=== PATIENT | female | born 1970 | race Caucasian/White ===

== ENCOUNTER 2017-01-23 21:49 | Emergency (ER) | payer OTHER ==
[~2017-01-23] VITALS: Ht 162.6 cm; Wt 99.8 kg
[~2017-01-23 21:49] MED LIST: ALBU8.5H3 IH; CARB1TAB5 PO; HYDR-2678 PO; HYDR25TA9 PO; METH10TA2 PO; PREG150C PO; ROPI0.5T2 PO; ROTI1PAT4 TD
[2017-01-23 22:00] VITALS: BP 160/91
--- NOTE | 2017-01-23 23:21 | PHYS DOC ---
General Chief Complaint: SKIN PROBLEM Stated Complaint: SKIN PROBLEM Time Seen by MD: 22:51 Source: patient, family Problems: History of Present Illness Initial Comments Patient with daughter for rash. Patient states that about 4:00 she noted some "welts" on her skin. This most prominent over the left posterior torso, and also noted over the right elbow and distal upper arm and behind the right knee. Patient says these are burning and itching, and she has burning throughout her entire body as well. She says she's never had this happen to her before. There is no fever or chills today. There is no runny nose or sore throat. She has no trouble swallowing or talking. There's no chest pain or shortness of breath. There is no nausea or vomiting or abdominal pain. She has no change in bowel or bladder habits and no other acute focal extremity or neurologic complaints noted except for the rash. Patient really has no new contacts. She's been on chronic medications for Parkinson's and chronic pain as well as fiber myalgia for quite some time. There's no recent change in her medications. She was placed on prednisone for a rash over the right wrist about 2 weeks ago. This discontinued last week she's had no further medications. There is no new food, no new clothing, no new soap, no new bath or body products, noted loggia detergent, no new cosmetics, and no other new contacts. She's not been outside working in the yard. She did get baptized today but this was a full inversion and the rash is located only in discrete areas as previously described. Patient' s really done nothing at home for this and notes no factors that increase or decrease her symptoms. Patient's past medical history is remarkable for Parkinson's disease and fibromyalgia. She is on chronic narcotic therapy including methadone for chronic pain. She is a nonsmoker and nonuser of ethanol. Allergies: Coded Allergies: codeine (Verified Allergy, Intermediate, Rash, 02/26/14) Past Medical History Medical History: other Surgical History: other Social History Smoker: non-smoker Alcohol: none Review of Systems All Other Systems: Reviewed and Negative Physical Exam General Appearance: WD/WN, no apparent distress Ear, Nose, Throat: normal ENT inspection, normal pharynx Neck: full range of motion, supple, normal inspection Respiratory: lungs clear, normal breath sounds, no respiratory distress Cardiovascular: regular rate, rhythm, no edema Gastrointestinal: non tender, soft, no organomegaly Back: no CVA tenderness, no vertebral tenderness Extremities: non-tender, no pedal edema Neurologic/Psychiatric: alert, normal mood/affect, oriented x 3 Skin: rash Lymphatic: no adenopathy Comments Generally this a well-developed well-nourished white female in no acute distress. Vitals are as noted. Pertinent findings on physical exam shows ears and throat to be clear. The lips and tongue are not swollen. There is no dysphagia and dysphonia or problems with secretions noted. Neck is supple without adenopathy or JVD. Chest is clear to auscultation bilaterally. There is no wheezes, tachypnea, use of accessory muscles, problems with verbalization, and no signs of acute respiratory distress. Cardiac vascular exam shows regular rate and rhythm without murmur. The abdomen is soft and nontender. Back shows no CVA tenderness. Extremity show no cyanosis or edema. The skin does show isolated earlier urticarial lesions over the medial aspect of the right elbow and right upper arm, in the popliteal fossa on the right, and behind the left lateral thoracic wall. There is no vesicles. There is no signs of cellulitis. There is no central clearing. These do appear to be consistent with urticarial lesions from some sort of reaction. There is no signs of discrete insect bite or trauma. Neurologic exam shows the patient awake, alert, oriented, and cooperative. Remainder of physical exam is clinically unremarkable. Orders, Labs, Meds Old charts note prior ER visits. Face contusion, pharyngitis, and COPD. She was last admitted to the hospital in 2013 for syncope. I discussed with the patient and her daughter the uncertain cause of her rash. This does appear to be an urticarial reaction to something, but the source remains unknown. There is really no specific known contacts which could cause urticaria in this particular distribution, and she has no new food medication or other intakes which would cause this reaction as well. I did suggest that while the source of this is unknown, we conservatively treat her symptoms. I did offer her IV therapy for quicker relief of symptoms, but she declines because she says she is a hard stick. We'll go and give her an initial doses of Benadryl, Pepcid, and prednisone here in the ED, along with prescriptions for home for the same. She does voice understanding need to follow up with primary care or return to the ER sooner as needed if worsening anyway. She looks well, in no acute discomfort distress, okay for discharge home at this time. AIDE DAMON MD Jan 23, 2017 23:20
[2017-01-23] MEDS ORDERED: DIPHENHYDRAMINE HCL 25 MG CAPSULE PO ONE (23:45)
[2017-01-23] MEDS ORDERED: PREDNISONE 20 MG TABLET PO ONE (23:45)
[2017-01-23] MEDS ORDERED: FAMOTIDINE 20 MG TABLET PO ONE (23:45)
== END 2017-01-23 23:37 | disposition home or self-care (01) ==
LOC: ER 21:49
DX: L50.9 Urticaria, unspecified (principal); G89.29 Other chronic pain; G20 Parkinson's disease; M79.7 Fibromyalgia; Z79.891 Long term (current) use of opiate analgesic; Z88.6 Allergy status to analgesic agent
CPT/HCPCS: 99284; J7512; Q0163

== ENCOUNTER 2017-03-14 20:25 | Emergency (ER) | payer OTHER ==
[~2017-03-14] VITALS: Ht 162.6 cm; Wt 99.8 kg
[~2017-03-14 20:25] MED LIST changes: -ALBU8.5H3 IH; +ALBU8.5H8 IH
[2017-03-14 20:50] VITALS: BP 122/83
[2017-03-14] MEDS ORDERED: PRED50TA PO (21:15)
--- NOTE | 2017-03-14 21:15 | PHYS DOC ---
Past History Past Medical History: Fibromyalgia, Other Past Surgical History: Cholecystectomy, Other Smoking: Greater than 1 pack/day Alcohol Use: None Drug Use: None Adult General Chief Complaint Chief Complaint: SKIN PROBLEM HPI HPI Patient is a 47 year old F who presents with hives for the past day. She states she gets these off and on with no definite cause. Patient denies any shortness of breath. Patient denies any nausea or vomiting. Patient has no other complaints. Pertinent exam findings: Urticarial hives generalized ED course: Patient was seen and examined and 10 mg IM Decadron were ordered and patient was discharged with a prescription for prednisone and told to take over-the- counter Benadryl MDM: After reviewing the chart, CC/HPI/PMH, physical exam, I do not believe the patient has a life threatening rash warranting further workup and/or admission at this time. I believe the patient's rash is consistent with urticaria the patient states that in the past steroids haven't worked very well. Patient was given 10 mg of Decadron and prescription for prednisone. Recommended the patient follow-up with PCP and maybe be referred on to an sql manager for further allergy testing. Patient is stable for discharge. Additional verbal discharge instructions were provided to the patient and that if symptoms get worse or any new symptoms arise that are worrisome to the patient she is to return to the emergency room immediately Review of Systems Review of Systems GEN: Denies fevers, chills, sweats HEENT: Denies blurred vision, sore throat CV: Denies chest pain RESP: Denies shortness of air, cough GI: Denies n/v/d NEURO: Denies confusion, dizziness MSK: Denies weakness, joint pain/swelling Skin: Rash Allergies Allergies Allergies Coded Allergies Type Severity Reaction Last Updated Verified codeine Allergy Intermediate Rash 02/26/14 Yes Physical Exam Physical Exam GEN.: No apparent distress. Alert and oriented. HEENT: Head is normocephalic, atraumatic NECK: Supple. LUNGS: CTAB. HEART: RRR, S1, S2 present. Peripheral pulses intact ABDOMEN: Soft, nontender. Positive bowel sounds. EXTREMITIES: Without any cyanosis. NEUROLOGIC: Normal speech, normal tone PSYCHIATRIC: Normal affect, normal mood. SKIN: Urticarial rash to the trunk and upper extremities EKG EKG [] Radiology/Procedures Radiology/Procedures [] Course & Med Decision Making Course & Med Decision Making Pertinent Labs and Imaging studies reviewed. (See chart for details) [] Dragon Disclaimer Dragon Disclaimer This chart was dictated in whole or in part using Voice Recognition software in a busy, high-work load, and often noisy Emergency Department environment. It may contain unintended and wholly unrecognized errors or omissions. Departure Departure: Impression: Primary Impression: Urticaria Condition: STABLE Referrals: CAROL ANN SANTOS APRN (PCP) Patient Instructions: Contact Dermatitis, [id number] Additional Instructions: Please follow up with her family doctor in one to 2 days and asked to be referred on to an sql manager for allergy testing Scripts Prednisone (PREDNISONE) 50 Mg Tablet 50 MG PO DAILY for 5 Days, #5 TAB Prov: MARYLOU TELLEZ DO 03/14/17 MARYLOU TELLEZ DO Mar 14, 2017 21:15
[2017-03-14] MEDS ORDERED: DEXAMETHASONE SOD PHOS 10 MG/ML VIAL ONE (21:22)
[2017-03-14] MEDS ORDERED: FAMOTIDINE 20 MG TABLET ONE (21:22)
[2017-03-14] MEDS ORDERED: diphenhydrAMINE HCL 25 MG CAPSULE PO ONE ×2 (21:22→21:30)
[2017-03-14] MEDS ORDERED: FAMOTIDINE 20 MG TABLET PO ONE (21:30)
[2017-03-14] MEDS ORDERED: DEXAMETHASONE SOD PHOS 10 MG/ML VIAL IM ONE (21:30)
== END 2017-03-14 21:30 | disposition home or self-care (01) ==
LOC: ER 20:25
DX: L50.9 Urticaria, unspecified (principal); M79.7 Fibromyalgia; F17.210 Nicotine dependence, cigarettes, uncomplicated; Z88.6 Allergy status to analgesic agent
CPT/HCPCS: 96372; 99283; J1100; Q0163

== ENCOUNTER 2017-07-31 11:48 | Emergency (ER) | payer OTHER ==
[~2017-07-31] VITALS: Ht 162.6 cm; Wt 99.8 kg
[~2017-07-31 11:48] MED LIST changes: +PRED50TA PO
[2017-07-31] MEDS ORDERED: NAPROXEN 500 MG TABLET PO ONE (12:20)
--- NOTE | 2017-07-31 13:13 | RAD ---
Three-view right shoulder radiographs 07/31/2017 Clinical history: Fall 2 days ago with right shoulder pain. AP internal and external rotation and transscapular digital radiographs of the right shoulder were obtained. No fracture or dislocation of the right shoulder is seen. No significant degenerative changes are noted. Impression: No fracture or dislocation of the right shoulder is seen.
--- NOTE | 2017-07-31 20:42 | ED.ADGEN ---
Past History Past Medical History: Diabetes, Fibromyalgia, Other Past Surgical History: Cholecystectomy, Other Smoking: Greater than 1 pack/day Alcohol Use: None Drug Use: None Adult General HPI HPI Patient is a 47-year-old woman, states she has a history of type 2 diabetes mellitus, 5 myalgia, "brain seizures", who presents to the emergency department with a complaint of right shoulder pain. Patient states she fell in her kitchen several days ago, striking her shoulder on the floor. She states that she has had pain since that time, denies other injuries or complaints. States pain is located in the shoulder and radiates down to the elbow, is worse with internal rotation and elevation. States she has been using her home dose of hydrocodone, she takes for chronic back pain without relief. States that she will occasionally have some heaviness and numbness that extends into the arm which he was at "hanging down for a while". Denies any weakness, denies any neck pain , head pain, nausea, vomiting, chest pain or other complaints. Patient ambulating without difficulty. Review of Systems Review of Systems Constitutional: Denies fever or chills [] Eyes: Denies change in visual acuity, redness, or eye pain [] HENT: Denies nasal congestion or sore throat [] Respiratory: Denies cough or shortness of breath [] Cardiovascular: No additional information not addressed in HPI [] GI: Denies abdominal pain, nausea, vomiting, bloody stools or diarrhea [] : Denies dysuria or hematuria [] Musculoskeletal: Denies back pain, complaining of pain in the right shoulder. Integument: Denies rash or skin lesions [] Neurologic: Denies headache, focal weakness or sensory changes [] Endocrine: Denies polyuria or polydipsia [] Current Medications Current Medications Current Medications Medications (Trade) Dose Ordered Sig/[facility] Start Time Stop Time Status Last Admin Dose Admin Naproxen (Naprosyn) 500 mg 1X ONCE 07/31/17 12:20 07/31/17 12:21 DC 07/31/17 12:20 500 MG Allergies Allergies Allergies Coded Allergies Type Severity Reaction Last Updated Verified codeine Allergy Intermediate Rash 02/26/14 Yes Physical Exam Physical Exam Constitutional: Well developed, well nourished, no acute distress, non-toxic appearance. [] HENT: Normocephalic, atraumatic, bilateral external ears normal, oropharynx moist, no oral exudates, nose normal. [] Eyes: PERRLA, EOMI, conjunctiva normal, no discharge. [] Neck: Normal range of motion, no tenderness, no step-offs or deformities, supple , no stridor. [] Cardiovascular:Heart rate regular rhythm, no murmur , S1, S2, rubs or gallops.[] Lungs & Thorax: Bilateral breath sounds clear to auscultation, no wheezing, rhonchi, rales. No chest or crepitus or tenderness. [] Abdomen: Bowel sounds normal, soft, obese, no rebound, rigidity, no guarding, no tenderness, no masses, no pulsatile masses. [] Skin: Warm, dry, no erythema, no rash. [] Back: No midline or paraspinal tenderness, no step-offs or deformities, no CVA tenderness. [] Extremities: Patient with tenderness palpation in the glenoid fossa, patient worse with internal rotation and elevation, no bony point tenderness below this area, patient with full active and passive range of motion throughout the rest of her extremities pulses are 2+ and equal bilaterally, no external signs of trauma, no cyanosis, no clubbing, ROM intact, no edema. [] Neurologic: Alert and oriented X 3, normal motor function, normal sensory function, no focal deficits noted. [] Psychologic: Affect normal, judgement normal, mood normal. [] Current Patient Data Vital Signs Vital Signs Date Time Temp Pulse Resp B/P (MAP) Pulse Ox O2 Delivery O2 Flow Rate FiO2 07/31/17 12:00 98.2 74 18 99 Room Air EKG EKG Not indicated.[] Radiology/Procedures Radiology/Procedures [] Impressions: [address] [address] IMAGING REPORT Signed PATIENT: JACKIE CORONEL ACCOUNT: [id number] : 1970 LOCATION: ER AGE: 47 SEX: F EXAM STATUS: REG ER ORD. PHYSICIAN: FLACA EPSTEIN DO REASON: Fall/pain PROCEDURE: SHOULDER 2+V RIGHT Three-view right shoulder radiographs 07/31/2017 Clinical history: Fall 2 days ago with right shoulder pain. AP internal and external rotation and transscapular digital radiographs of the right shoulder were obtained. No fracture or dislocation of the right shoulder is seen. No significant degenerative changes are noted. Impression: No fracture or dislocation of the right shoulder is seen. DICTATED AND SIGNED BY: JONNIE ABDI MD DATE: 07/31/17 0561 CC: CAROL ANN SANTOS APRN; FLACA EPSTEIN DO ~ Course & Med Decision Making Course & Med Decision Making Pertinent Labs and Imaging studies reviewed. (See chart for details) Patient with negative Spurling sign, history and examination are concerning for possible rotator cuff injury, following fall. Patient neurovascularly intact, x- rays obtained after discussion at bedside which did not reveal any concerning findings. Patient was treated with naproxen in the ED, instructed to continue [id number] anti-inflammatory medications along with her home medications, was given contact information for orthopedics, and clear and detailed return instructions which she voiced understanding and agreement. Patient discharged home in stable condition with plan and precautions as above. Final Impression Final Impression [] Problems: Dragon Disclaimer Dragon Disclaimer This electronic medical record was generated, in whole or in part, using a voice recognition dictation system. Departure: Impression: Primary Impression: Right upper limb pain Disposition: HOME, SELF-CARE Condition: IMPROVED FLACA EPSTEIN DO Jul 31, 2017 20:42
[2017-08-03 13:30] VITALS: BP 122/63
== END 2017-07-31 13:58 | disposition home or self-care (01) ==
LOC: ER 11:48
DX: M25.511 Pain in right shoulder (principal); E11.9 Type 2 diabetes mellitus without complications; M79.7 Fibromyalgia; G89.29 Other chronic pain; Z88.5 Allergy status to narcotic agent; F17.200 Nicotine dependence, unspecified, uncomplicated; W19.XXXA Unspecified fall, initial encounter; Y93.89 Activity, other specified; Y99.8 Other external cause status; Y92.090 Kitchen in other non-institutional residence as the place of occurrence of the external cause
CPT/HCPCS: 73030; 96361; 96374; 99284; 99285-25

== ENCOUNTER 2017-08-21 16:05 | Observation (INO) | payer OTHER ==
[~2017-08-21] VITALS: Ht 162.6 cm; Wt 99.8 kg
[2017-08-21] MEDS ORDERED: ASPIRIN 81 MG TAB.CHEW PO ONE (16:30)
[2017-08-21] MEDS ORDERED: NITROGLYCERIN SUBLINGUAL 0.4 MG BOTTLE OF 25. SL PRN (16:30)
--- NOTE | 2017-08-21 16:34 | RAD ---
EXAM: Chest, single view. HISTORY: Cough. COMPARISON: 12/04/2014. FINDINGS: A frontal view of the chest is obtained. There is no infiltrate, effusion or pneumothorax. The heart is normal in size. IMPRESSION: No acute pulmonary finding.
[2017-08-21 16:48] LABS: BASO % 0 % (0-3); EOS # 0.2 x10^3/uL (0.0-0.7); EOS % 2 % (0-3); HEMATOCRIT 39.7 % (36.0-47.0); HEMOGLOBIN 13.4 g/dL (12.0-15.5); LYMPH # 3.7 x10^3/uL (1.0-4.8); LYMPH % 35 % (24-48); MEAN CORPUSCULAR HEMOGLOBIN 29 pg (25-35); MEAN CORPUSCULAR HGB CONC 34 g/dL (31-37); MEAN CORPUSCULAR VOLUME 86 fL (79-100); MONO # 0.7 x10^3/uL (0.0-1.1); MONO % 7 % (0-9); NEUT # 5.8 x10^3uL (1.8-7.7); NEUT % 55 % (31-73); PLATELET COUNT 314 x10^3/uL (140-400); RED BLOOD COUNT 4.61 x10^6/uL (3.50-5.40); WHITE BLOOD COUNT 10.5 x10^3/uL (4.0-11.0)
[2017-08-21 16:49] LABS: HEMOGLOBIN ISTAT 13.6 gm/dL; POTASSIUM ISTAT 3.7 mmol/L (3.5-5.0)
--- NOTE | 2017-08-21 16:53 | PHYS DOC ---
General Chief Complaint: CHEST PAIN Stated Complaint: CHEST/RT ARM TIGHT,LEFT FACIAL SWELLING Time Seen by MD: 16:14 Source: patient, old records Exam Limitations: no limitations Problems: History of Present Illness Initial Comments Patient is a 47-year-old female who comes to the ED complaining of headache and chest pain. Patient states that for the past several days she just hasn't been feeling very well. She states she's been lying around on the couch for most of her time. Today at 1 PM while reclining on the couch she experienced sudden onset severe anterior chest tightness with radiation to her right arm. She states she had diaphoresis and shortness of breath with some nausea no vomiting. Simultaneously she experienced a mild global throbbing headache and felt as if she was having right arm and leg weakness. Her spouse felt as if she had some left-sided facial swelling and compel her to come for evaluation. On ED arrival patient vital signs are stable she is ambulatory and bedside neurologic exam is normal at this time. She states that her chest pain symptoms have nearly resolved and on arrival actually considered signing out AGAINST MEDICAL ADVICE. She did decide to stay for evaluation after talking over the phone with her spouse and workup was initiated. Time of all symptom onset 1300 today. Timing/Duration: resolved prior to arrival, other (1300 today) Severity: moderate Modifying Factors: improves with other Associated Symptoms: chest pain, diaphoresis, headaches, malaise, nausea/ vomiting, shortness of breath, weakness Allergies: Coded Allergies: codeine (Verified Allergy, Intermediate, Rash, 08/21/17) Past Medical History Medical History: other (CVA, TIA, Parkinson's, fibromyalgia, COPD, diabetes, seizure, tobaccoism) Surgical History: other (hysterectomy, tonsillectomy, cholecystectomy) Social History Smoker: greater than 1 pack/day Alcohol: none Drugs: none Review of Systems Constitutional: denies chills, diaphoresis, denies fever, malaise Respiratory: cough, shortness of breath, denies wheezing Cardiovascular: chest pain, denies palpitations, denies syncope Gastrointestinal: denies abdominal pain, denies diarrhea, denies nausea, denies vomiting Genitourinary: denies dysuria, denies frequency, denies hematuria Musculoskeletal: denies back pain, denies joint swelling, denies neck pain Psychiatric/Neurological: see HPI Physical Exam General Appearance: WD/WN, no apparent distress Eyes: bilateral eye normal inspection, bilateral eye PERRL, bilateral eye EOMI Ear, Nose, Throat: hearing grossly normal, normal ENT inspection (mild left facial swelling no droop, tender left-sided nodule 1 cm smooth and round mildly tender consistent with reactive lymph node.), normal pharynx Neck: non-tender, full range of motion, supple Respiratory: chest non-tender, normal breath sounds, no respiratory distress Cardiovascular: normal peripheral pulses, regular rate, rhythm, no edema Gastrointestinal: normal bowel sounds, non tender, soft Back: no CVA tenderness, no vertebral tenderness Extremities: normal range of motion, non-tender (one plus pitting lower extremity edema) Neurologic/Psychiatric: utility inspector II-XII nml as tested, no motor/sensory deficits, alert, normal mood/affect, oriented x 3 Skin: normal color, warm/dry Orders, Labs, Meds EKG: Normal sinus rhythm 78 bpm, incomplete right bundle erica block, no STEMI. Interpreted by Dr. Silva. PATIENT: JACKIE CORONEL ACCOUNT: [id number] : 1970 LOCATION: ER AGE: 47 SEX: F EXAM STATUS: REG ER ORD. PHYSICIAN: JANE SILVA DO REASON: cp PROCEDURE: PORTABLE CHEST 1V EXAM: Chest, single view. HISTORY: Cough. COMPARISON: 12/04/2014. FINDINGS: A frontal view of the chest is obtained. There is no infiltrate, effusion or pneumothorax. The heart is normal in size. IMPRESSION: No acute pulmonary finding. DICTATED AND SIGNED BY: CAROL ANN ULLOA MD DATE: 08/21/17 163 CC: CAROL ANN SANTOS RELIEF PHARMACIST; JANE SILVA DO ~ I-STAT basic metabolic panel: Sodium 141, potassium 3.7, chloride 103, CO2 28, glucose 96, BUNs 8, creatinine 0.7, hemoglobin 13.6, hematocrit 40%, anion gap 15 I-STAT troponin 0.00 Labs and urine otherwise normal, d-dimer 1.32. CTA of the chest ordered. Will order Lovenox anticoagulation empirically until CTA returned as normal. 1758: I discussed the patient with gas station manager hospitalist Dr. Henry. He accepts the patient for inpatient ICU admission pending negative CT evaluation of the head and pending the patient remains neurologically intact as she currently is. 1845: I rechecked the patient, she is currently sitting up on the edge of her bed eating a salad using her right hand as she is right-hand dominant. She remains neurologically intact and asymptomatic. She has no new or progressive symptoms I advised her that CTA of the chest would be performed prior to her transfer to the main hospital for admission. Patient is agreeable. PATIENT: JACKIE CORONEL ACCOUNT: [id number] : 1970 LOCATION: ER AGE: 47 SEX: F EXAM STATUS: REG ER ORD. PHYSICIAN: JANE SILVA DO REASON: JACK, R arm/leg weak, h/o CVA PROCEDURE: CT HEAD WO CONTRAST CT HEAD WO CONTRAST dated 08/21/2017 6:05 PM Indication:patient came into ER tonight w pressure on top and temporal side of head, nausea and weakness. Hx of brain seizures and has had 2 TIA's in past Comparison: October 19, 2016 exam. Technique: One or more of the following individualized dose reduction techniques were utilized for this examination: 1. Automated exposure control 2. Adjustment of the mA and/or kV according to patient size 3. Use of iterative reconstruction technique Findings: The ventricles and sulci are normal in size. There is no evidence of hemorrhage or infarction. No intra or extra-axial mass lesion is seen. There is no shift of the midline structures. The basal cisterns are well maintained. Bone windows are unremarkable. Visualized portions of the paranasal sinuses and mastoid air cells are clear. IMPRESSION: Normal CT of the head without contrast Electronically signed by: Elizabeth King MD (08/21/2017 6:44 PM) [facility] DICTATED AND SIGNED BY: ELIZABETH KING MD DATE: 08/21/171840 CC: CAROL ANN SANTOS APRN; JANE SILVA DO ~ Impressions: Chest pain TIA Elevated d-dimer rule out PE Tobaccoism Departure Time of Disposition: 18:52 Disposition: 09 ADMITTED INPATIENT Diagnosis: TIA, chest pain, elevated d-dimer rule out PE Condition: IMPROVED Additional Instructions: Inpatient telemetry admission Dr. Jerome is accepting. JANE SILVA DO Aug 21, 2017 16:53
[2017-08-21 17:06] LABS: ALBUMIN 3.1 g/dL (3.4-5.0); DIRECT BILIRUBIN 0.1 mg/dL (0.0-0.2); TOTAL BILIRUBIN 0.2 mg/dL (0.2-1.0); TOTAL PROTEIN 6.9 g/dL (6.4-8.2)
[2017-08-21 18:20] LABS: ALBUMIN 3.1 g/dL (3.4-5.0); ALBUMIN/GLOBULIN RATIO 0.8 (1.0-1.7); CALCIUM 8.6 mg/dL (8.5-10.1); CREATININE 0.8 mg/dL (0.6-1.0); GFR 77.2; POTASSIUM 3.7 mmol/L (3.5-5.1); TOTAL BILIRUBIN 0.2 mg/dL (0.2-1.0); TOTAL PROTEIN 6.9 g/dL (6.4-8.2)
[2017-08-21 18:37] LABS: BACTERIA,URINE FEW /HPF (0-FEW); BILIRUBIN,URINE NEG (NEG); CLARITY,URINE CLEAR; COLOR,URINE YELLOW; GLUCOSE,URINE NEG (NEG); NITRITE,URINE NEG (NEG); RBC,URINE RARE /HPF (0-2); UROBILINOGEN,URINE 0.2 mg/dL (0.2 mg/dL)
[2017-08-21 18:38] LABS: SQUAMOUS EPITHELIAL CELL,UR OCC /LPF
--- NOTE | 2017-08-21 18:47 | RAD ---
CT HEAD WO CONTRAST dated 08/21/2017 6:05 PM Indication:patient came into ER tonight w pressure on top and temporal side of head, nausea and weakness. Hx of brain seizures and has had 2 TIA's in past Comparison: October 19, 2016 exam. Technique: One or more of the following individualized dose reduction techniques were utilized for this examination: 1. Automated exposure control 2. Adjustment of the mA and/or kV according to patient size 3. Use of iterative reconstruction technique Findings: The ventricles and sulci are normal in size. There is no evidence of hemorrhage or infarction. No intra or extra-axial mass lesion is seen. There is no shift of the midline structures. The basal cisterns are well maintained. Bone windows are unremarkable. Visualized portions of the paranasal sinuses and mastoid air cells are clear. IMPRESSION: Normal CT of the head without contrast Electronically signed by: Elizabeth Woods MD (08/21/2017 6:44 PM) [facility]
[2017-08-21 18:51] LABS: BARBITURATES NEG (NEG); BENZODIAZEPINES NEG (NEG); CANNABINOIDS NEG (NEG); COCAINE NEG (NEG); METHADONE POS (NEG); OPIATES NEG (NEG); PHENCYCLIDINE NEG (NEG)
[2017-08-21 18:58] LABS: AMPHETAMINE/METHAMPHETAMINE NEG (NEG)
[2017-08-21] MEDS ORDERED: IOHEXOL 300 MG/ML 75 ML VIAL. IV ONE (19:00)
[2017-08-21] MEDS ORDERED: ACETAMINOPHEN 325 MG TABLET PO PRN (19:00)
[2017-08-21] MEDS ORDERED: ONDANSETRON PF 4 MG/2 ML VIAL. IV PRN (19:00)
[2017-08-21] MEDS ORDERED: CONTRAST GIVEN MC PRN (19:00)
--- NOTE | 2017-08-21 20:08 | RAD ---
CTA chest with contrast Indication: CTA CHEST - GAVE OMNI 300 75ML IV - TOLERATED WELL
CHEST PAIN, ELEVATED D DIMER
DIABETIC - TOLD RN IN ER TO HOLD METFORMIN X 48 HRS . Comparison: No comparison is available. Technique: After bolus of intravenous contrast, CT imaging was performed of the chest. MIP reconstructions were obtained. Exposure: One or more of the following individualized dose reduction techniques were utilized for this examination: 1. Automated exposure control 2. Adjustment of the mA and/or kV according to patient size 3. Use of iterative reconstruction technique. Findings: Pulmonary arteries:No evidence of pulmonary embolism. Thoracic aorta: No evidence of an aneurysm or dissection. Thyroid gland:Visualized aspect is unremarkable. Lymph nodes: Small mediastinal lymph nodes are seen. No bulky or pathologic lymph node enlargement in the chest. Heart: No significant pericadial effusion. Pleural spaces: No significant effusion Lungs: Densely calcified granuloma in the left lower lobe. No airspace consolidation or infiltrate. Trachea and central airways: Patent Bones: Mild degenerative changes of the spine. Upper abdomen: Slices were obtained through the upper abdomen, but are of limited usefulness due to technique.No obvious acute findings. Impression: Negative for pulmonary embolism or other acute process in the chest. Electronically signed by: Andrea Jay MD (08/21/2017 8:05 PM) [facility] [place]
[2017-08-21 20:30] VITALS: BP 119/81
--- NOTE | 2017-08-21 20:30 | NUR ---
The patient, JACKIE CORONEL, 47 y/o, F admitted by DEWEY RAJAN MD, was given written information regarding hospital policies, unit procedures and contact persons. Valuables were checked and the patient was made comfortable by staff.
[2017-08-21] MEDS: IPRATRPIUM/ALBUTEROL 0.5/2.5MG 3 ML NEBU. NEB SCH (21:00)
[2017-08-21] MEDS ORDERED: RANI150C PO (22:02)
[2017-08-21] MEDS ORDERED: VARE1TAB20 PO (22:02)
[2017-08-21] MEDS ORDERED: METF500T4 PO (22:02)
[2017-08-21] MEDS ORDERED: ALBUTEROL SULFATE 2.5 MG/3 ML NEBU. NEB PRN (22:15)
[2017-08-21] MEDS ORDERED: ANTI-COAG MONITOR BY PHARMACY. MC PRN (22:30)
[2017-08-21] MEDS: ENOXAPARIN ** NOTE DOSE ** SYRINGE SQ SCH (23:18)
[2017-08-21] MEDS: IV NORMAL SALINE 1,000ML 1,000 ML IV SCH (23:30)
[2017-08-21 23:46] VITALS: BP 106/66
[2017-08-22] MEDS ORDERED: HYDROcodone/APAP 5/325MG 1 TAB TABLET PO PRN (01:00)
--- NOTE | 2017-08-22 01:28 | EKG ---
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
[2017-08-22] MEDS: IPRATRPIUM/ALBUTEROL 0.5/2.5MG 3 ML NEBU. NEB SCH (05:29)
[2017-08-22 05:45] VITALS: BP 96/64
[2017-08-22 07:06] LABS: BASO % 0 % (0-3); EOS # 0.2 x10^3/uL (0.0-0.7); EOS % 2 % (0-3); HEMATOCRIT 38.2 % (36.0-47.0); LYMPH # 3.5 x10^3/uL (1.0-4.8); LYMPH % 35 % (24-48); MEAN CORPUSCULAR HEMOGLOBIN 29 pg (25-35); MEAN CORPUSCULAR HGB CONC 34 g/dL (31-37); MEAN CORPUSCULAR VOLUME 86 fL (79-100); MONO # 0.6 x10^3/uL (0.0-1.1); MONO % 6 % (0-9); NEUT # 5.5 x10^3uL (1.8-7.7); NEUT % 56 % (31-73); PLATELET COUNT 255 x10^3/uL (140-400); RED BLOOD COUNT 4.44 x10^6/uL (3.50-5.40); RED CELL DISTRIBUTION WIDTH 14.2 % (11.5-14.5); WHITE BLOOD COUNT 9.8 x10^3/uL (4.0-11.0)
[2017-08-22 07:11] LABS: ALBUMIN 2.9 g/dL (3.4-5.0); ALBUMIN/GLOBULIN RATIO 0.8 (1.0-1.7); CALCIUM 8.3 mg/dL (8.5-10.1); CREATININE 0.7 mg/dL (0.6-1.0); GFR 90.1; POTASSIUM 3.7 mmol/L (3.5-5.1); TOTAL BILIRUBIN 0.1 mg/dL (0.2-1.0); TOTAL PROTEIN 6.5 g/dL (6.4-8.2)
[2017-08-22] MEDS ORDERED: PREGABALIN 75 MG CAPSULE PO SCH (09:00)
[2017-08-22] MEDS ORDERED: FAMOTIDINE 20 MG TABLET PO SCH (09:00)
[2017-08-22] MEDS ORDERED: CARBIDOPA/LEVODOPA CR 50/200MG TABLET.SA PO SCH (09:00)
[2017-08-22] MEDS: ENOXAPARIN ** NOTE DOSE ** SYRINGE SQ SCH (09:00)
[2017-08-22] MEDS ORDERED: METHADONE 5 MG TABLET. PO SCH (09:00)
[2017-08-22] MEDS ORDERED: VARENICLINE 1 MG TABLET. PO SCH (09:00)
--- NOTE | 2017-08-22 09:17 | PDOC2 ---
CONSULT Date of Admission DATE: 08/22/17 TIME: 09:06 Reason for Consult: chest pain History of Present Illness Ms James is a 47 year old female who presented to the ED yesterday with complaints of chest pain radiating to her right arm, headache and some right sided weakness. Her symptoms of weakness apparently subsided by the time she arrived. She reports the chest tightness lasted until she went to sleep last pm but had resolved by the time she woke this am. She reports onset of chest pressure and tightness while at rest. She denies any exacerbating or relieving factors. She says she thought she was starting to get a cold. She currently denies any associated symptoms with the discomfort. She denies any prior episodes of discomfort. She denies any functional limitations and is able to climb a flight of steps without any problems. She denies any regular exercise. She denies any congestive symptoms, dyspnea, palpitations, lightheadedness or syncope. Past Medical History diabetes, parkinsons, fibromyalgia Family History Father with PA late 50s to early 60s. Social History 1/2 ppd smoker, denies any ETOH or illicit drugs Current Medications Current Medications Aspirin (Children'S Aspirin) 324 mg 1X ONCE PO Last administered on 16:38; Start 08/21/17 at 16:30; Stop 08/21/17 at 16:31; Status DC Nitroglycerin (Nitrostat) 0.4 mg PRN Q5MIN PRN SL CP RATING > 1/10 Last administered on 08/21/17 16:39; Start 08/21/17 at 16:30; Stop 08/22/17 at 16 :29 Iohexol (Omnipaque 300 Mg/ml) 75 ml 1X ONCE IV Last administered on 19:36; Start 08/21/17 at 19:00; Stop 08/21/17 at 19:01; Status DC Info (Do NOT chart on this entry -- for MONITORING) 1 each PRN DAILY PRN MC SEE COMMENTS; Start 08/21/17 at 19:00; Stop 08/23/17 at 18:59 Ondansetron HCl (Zofran) 4 mg PRN Q4HRS PRN IV NAUSEA/VOMITING; Start at 19:00; Stop 08/22/17 at 18:59 Acetaminophen (Tylenol) 650 mg PRN Q4HRS PRN PO FEVER; Start 08/21/17 at 19:00 ; Stop 08/22/17 at 18:59 Albuterol/ Ipratropium (Duoneb) 3 ml RTQID NEB Last administered on 08/22/17 05:29; Start 08/21/17 at 20:00; Stop 08/22/17 at 19:59 Albuterol Sulfate (Ventolin) 2.5 mg PRN Q2HR PRN NEB SHORTNESS OF BREATH; Start 08/21/17 at 22:15 Levofloxacin/ Dextrose 100 ml @ 100 mls/hr 1X ONCE IV Last administered on 23:00; Start 08/21/17 at 23:00; Stop 08/21/17 at 23:59; Status DC Levofloxacin/ Dextrose 50 ml @ 50 mls/hr Q48H IV ; Start 08/23/17 at 22:00 Enoxaparin Sodium (Lovenox 100mg Syringe) 100 mg Q12HR SQ Last administered on 08/21/17 23:18; Start 08/21/17 at 23:00 Info (Anti-Coagulation Monitoring By Pharmacy) 1 each PRN DAILY PRN MC SEE COMMENTS; Start 08/21/17 at 22:30 Sodium Chloride 1,000 ml @ 100 mls/hr Q10H IV Last administered on 08/21/17 23:30; Start 08/21/17 at 23:30 Carbidopa/Levodopa (Sinemet Cr) 2 tab.sa TID PO ; Start 08/22/17 at 09:00 Acetaminophen/ Hydrocodone Bitart (Lortab 5/325) 1 tab PRN Q6HRS PRN PO MODERATE PAIN; Start 08/22/17 at 01:00 Metformin HCl (Glucophage) 500 mg DAILYWBKFT PO ; Start 08/24/17 at 08:00; Status Cancel Pregabalin (Lyrica) 75 mg TID PO ; Start 08/22/17 at 09:00 Methadone HCl (Dolophine) 10 mg TID PO ; Start 08/22/17 at 09:00 Famotidine (Pepcid) 20 mg BID PO ; Start 08/22/17 at 09:00 Varenicline (Chantix) 1 mg BID PO ; Start 08/22/17 at 09:00 Active Scripts Active Reported Metformin Hcl 500 Mg Tablet 1 Tab PO DAILY Ranitidine Hcl 150 Mg Capsule 1 Cap PO BID Chantix (Varenicline Tartrate) 1 Each Tab.ds.pk 1 Each PO BID Sinemet Cr 50-200 Tablet (Carbidopa/Levodopa) 1 Each Tablet.er 2 Each PO TID Methadone Hcl 10 Mg Tablet 10 Mg PO TID Lyrica (Pregabalin) 150 Mg Capsule 75 Mg PO TID Lortab 5-325 mg Tablet (Hydrocodone/Acetaminophen) 1 Each Tablet 1 Each PO PRN Allergies: Coded Allergies: codeine (Verified Allergy, Intermediate, Rash, 08/21/17) Review of System as per HPI or negative General: Alert, Oriented X3, Cooperative, No acute distress HEENT: Atraumatic, EOMI, Mucous membr. moist/pink Lungs: Clear to auscultation, Normal air movement Heart: Regular rate, Normal S1, Normal S2, Other (no gallops, clicks or rubs, no obvious murmurs) Abdomen: Normal bowel sounds, Soft, No tenderness Extremities: No clubbing, No cyanosis, No edema, Normal pulses Neuro: Normal speech, Strength at 5/5 X4 ext Psych/Mental Status: Mental status NL, Mood NL VITALS Vital Signs Date Time Temp Pulse Resp B/P (MAP) Pulse Ox O2 Delivery O2 Flow Rate FiO2 08/22/17 05:45 97.7 81 16 96/64 (75) 99 Room Air 08/21/17 20:30 98.0 Labs Laboratory Tests Test 08/21/17 16:18 08/21/17 16:57 08/21/17 17:00 08/21/17 17:25 White Blood Count 10.5 x10^3/uL (4.0-11.0) Red Blood Count 4.61 x10^6/uL (3.50-5.40) Hemoglobin 13.4 g/dL (12.0-15.5) Hematocrit 39.7 % (36.0-47.0) Mean Corpuscular Volume 86 fL (79-100) Mean Corpuscular Hemoglobin 29 pg (25-35) Mean Corpuscular Hemoglobin Concent 34 g/dL (31-37) Red Cell Distribution Width 14.0 % (11.5-14.5) Platelet Count 314 x10^3/uL (140-400) Neutrophils (%) (Auto) 55 % (31-73) Lymphocytes (%) (Auto) 35 % (24-48) Monocytes (%) (Auto) 7 % (0-9) Eosinophils (%) (Auto) 2 % (0-3) Basophils (%) (Auto) 0 % (0-3) Neutrophils # (Auto) 5.8 x10^3uL (1.8-7.7) Lymphocytes # (Auto) 3.7 x10^3/uL (1.0-4.8) Monocytes # (Auto) 0.7 x10^3/uL (0.0-1.1) Eosinophils # (Auto) 0.2 x10^3/uL (0.0-0.7) Basophils # (Auto) 0.0 x10^3/uL (0.0-0.2) Prothrombin Time 9.9 SEC (9.4-11.4) Prothromb Time International Ratio 1.0 (0.9-1.1) Activated Partial Thromboplast Time 25 SEC (23-33) Total Bilirubin 0.2 mg/dL (0.2-1.0) 0.2 mg/dL (0.2-1.0) Direct Bilirubin 0.1 mg/dL (0.0-0.2) Aspartate Amino Transf (AST/SGOT) 16 U/L (15-37) 16 U/L (15-37) Alanine Aminotransferase (ALT/SGPT) 28 U/L (14-59) 29 U/L (14-59) Alkaline Phosphatase 114 U/L (46-116) 112 U/L (46-116) Creatine Kinase 46 U/L (26-192) Troponin I Quantitative < 0.017 ng/mL (0-0.055) RY-Ewm-I-Type Natriuretic Peptide 211 pg/mL (0-124) Total Protein 6.9 g/dL (6.4-8.2) 6.9 g/dL (6.4-8.2) Albumin 3.1 g/dL (3.4-5.0) 3.1 g/dL (3.4-5.0) Lipase 168 U/L (73-393) D-Dimer (Cathy) 1.32 mg/L (0.00-0.50) Erythrocyte Sedimentation Rate 25 (0-25) Sodium Level 140 mmol/L (136-145) Potassium Level 3.7 mmol/L (3.5-5.1) Chloride Level 105 mmol/L (98-107) Carbon Dioxide Level 29 mmol/L (21-32) Anion Gap 6 (6-14) Blood Urea Nitrogen 9 mg/dL (7-20) Creatinine 0.8 mg/dL (0.6-1.0) Estimated GFR (Cockcroft-Gault) 77.2 BUN/Creatinine Ratio 11 (6-20) Glucose Level 100 mg/dL (70-99) Lactic Acid Level 1.2 mmol/L (0.4-2.0) Calcium Level 8.6 mg/dL (8.5-10.1) Albumin/Globulin Ratio 0.8 (1.0-1.7) Urine Opiates Screen Neg (NEG) Urine Methadone Screen Pos (NEG) Urine Barbiturates Neg (NEG) Urine Phencyclidine Screen Neg (NEG) Urine Amphetamine/Methamphetamine Neg (NEG) Urine Benzodiazepines Screen Neg (NEG) Urine Cocaine Screen Neg (NEG) Urine Cannabinoids Screen Neg (NEG) Urine Ethyl Alcohol Neg (NEG) Bedside Troponin I 0.00 ng/ml (<0.08) Test 08/21/17 17:40 08/22/17 06:22 08/22/17 07:39 Bedside Hemoglobin 13.6 gm/dL Bedside Hematocrit 40 % Urine Collection Type Unknown Urine Color Yellow Urine Clarity Clear Urine pH 7.5 Urine Specific [place] 1.020 Urine Protein Neg (NEG-TRACE) Urine Glucose (UA) Neg mg/dL (NEG) Urine Ketones (Stick) Neg mg/dL (NEG) Urine Blood Trace (NEG) Urine Nitrite Neg (NEG) Urine Bilirubin Neg (NEG) Urine Urobilinogen Dipstick 0.2 mg/dL (0.2 mg/dL) Urine Leukocyte Esterase Neg (NEG) Urine RBC Rare /HPF (0-2) Urine WBC 1-4 /HPF (0-4) Urine Squamous Epithelial Cells Occ /LPF Urine Bacteria Few /HPF (0-FEW) Urine Mucus Slight /LPF Bedside Sodium 141 mmol/L (135-145) Bedside Potassium 3.7 mmol/L (3.5-5.0) Bedside Chloride 103 mmol/L (98-110) Bedside Total CO2 28 mmol/L (23-32) Anion Gap 15 mmol/L (6-14) 7 (6-14) Bedside Blood Urea Nitrogen 8 mg/dL (8-26) Bedside Creatinine 0.7 mg/dL (0.5-1.4) Glucose Level 96 mg/dL (60-99) 141 mg/dL (70-99) Bedside Ionized Calcium (Capri) 1.17 mmol/L (1.13-1.32) White Blood Count 9.8 x10^3/uL (4.0-11.0) Red Blood Count 4.44 x10^6/uL (3.50-5.40) Hemoglobin 13.0 g/dL (12.0-15.5) Hematocrit 38.2 % (36.0-47.0) Mean Corpuscular Volume 86 fL (79-100) Mean Corpuscular Hemoglobin 29 pg (25-35) Mean Corpuscular Hemoglobin Concent 34 g/dL (31-37) Red Cell Distribution Width 14.2 % (11.5-14.5) Platelet Count 255 x10^3/uL (140-400) Neutrophils (%) (Auto) 56 % (31-73) Lymphocytes (%) (Auto) 35 % (24-48) Monocytes (%) (Auto) 6 % (0-9) Eosinophils (%) (Auto) 2 % (0-3) Basophils (%) (Auto) 0 % (0-3) Neutrophils # (Auto) 5.5 x10^3uL (1.8-7.7) Lymphocytes # (Auto) 3.5 x10^3/uL (1.0-4.8) Monocytes # (Auto) 0.6 x10^3/uL (0.0-1.1) Eosinophils # (Auto) 0.2 x10^3/uL (0.0-0.7) Basophils # (Auto) 0.0 x10^3/uL (0.0-0.2) Sodium Level 138 mmol/L (136-145) Potassium Level 3.7 mmol/L (3.5-5.1) Chloride Level 105 mmol/L (98-107) Carbon Dioxide Level 26 mmol/L (21-32) Blood Urea Nitrogen 8 mg/dL (7-20) Creatinine 0.7 mg/dL (0.6-1.0) Estimated GFR (Cockcroft-Gault) 90.1 BUN/Creatinine Ratio 11 (6-20) Calcium Level 8.3 mg/dL (8.5-10.1) Total Bilirubin 0.1 mg/dL (0.2-1.0) Aspartate Amino Transf (AST/SGOT) 17 U/L (15-37) Alanine Aminotransferase (ALT/SGPT) 29 U/L (14-59) Alkaline Phosphatase 104 U/L (46-116) Troponin I Quantitative < 0.017 ng/mL (0-0.055) Total Protein 6.5 g/dL (6.4-8.2) Albumin 2.9 g/dL (3.4-5.0) Albumin/Globulin Ratio 0.8 (1.0-1.7) Glucose (Fingerstick) 117 mg/dL (70-99) Images Chest CT Impression: Negative for pulmonary embolism or other acute process in the chest. Head CT IMPRESSION: Normal CT of the head without contrast CXR IMPRESSION: No acute pulmonary finding. EKG - sinus rhythm without acute ischemic changes. Assessment/Plan 1. Chest pain - CE neg x 2 sets. No acute ischemic changes on EKG. In light of her diabetes and + family history of premature coronary disease would recommend a stress test. As she is adamant about going home this am, OK to have done as outpatient. Instructed on atypical symptom presentation in women and diabetics and she is instructed to return if any reoccurrence of discomfort or new symptoms. Suggest run lipids on blood in lab. No beta anjelica due to low end blood pressure. 2. diabetes mellitus - as per PCP Problems: GIOVANNA HAM APRN Aug 22, 2017 09:17
[2017-08-22] MEDS: IV NORMAL SALINE 1,000ML 1,000 ML IV SCH (09:30)
--- NOTE | 2017-08-22 15:01 | SSS ---
ADMIT DATE: 08/22/2017 Admission was greater than 8 hours and less than 24. DISCHARGE DIAGNOSES: 1. Chest pain, myocardial infarctions, ruled out, etiology unclear. EKG is negative. Troponins negative. 2. Morbid obesity. 3. Sleep apnea suspect. 4. History of transient ischemic attacks. 5. Type 2 diabetes. 6. Fibromyalgia. 7. Parkinson's disease. 8. Mild protein-calorie malnutrition. 9. Elevated D-dimer, pulmonary embolism ruled out. CONSULTANTS: [facility]. HOSPITAL COURSE: A 47-year-old female who came to the Emergency Room yesterday and stated the pain started around 1 p.m. yesterday, but waited several hours until going to the Emergency Room. She described it as a chest pressure-like someone was sitting on her chest with some radiation and the feeling of weakness, but it was subsided by the time she arrived. She also had a little bit of chest pain last night in the hospital, but it was gone this morning. She in general did not feel very good yesterday, nothing specific, maybe a little sore throat, but otherwise just did not feel good. MEDICATIONS: Please see list. FAMILY HISTORY: Father of [place] at age 56. SOCIAL HISTORY: She was a 1-1/2 packs per day smoker and is now smoking 5 cigarettes a day, 1-1/2 packs was about 30 years. No alcohol. REVIEW OF SYSTEMS: As per HPI. OBJECTIVE: VITAL SIGNS: Blood pressure 106/66, temperature 98.2, pulse 82, pulse ox 97% on room air. Her height is 64 inches, weight 220 pounds. Her color is good. HEENT: Pupils were equal, round, and reactive to light. Extraocular muscles were intact. Her nose is patent. Throat was clear. She has a very large tongue relative to a very small posterior pharynx. Dentures in place, very short neck. No carotid bruits. LUNGS: Clear to auscultation. CARDIOVASCULAR: Regular rhythm and rate. ABDOMEN: Soft and nontender. Bowel sounds were positive. EXTREMITIES: Without edema. Did not notice a tremor. LABORATORY DATA: Albumin 2.9. Troponins negative x 2. D-dimer was 1.32. CT of the chest negative. EKG is negative. PLAN: The patient insisted on being discharged. She was seen by both myself and Cardiology and recommended her to have outpatient tests and Cardiology spoke to her about getting a stress test as an outpatient and echo. THANH WILSON DO DR: JOLENE/mahsa JOB#: [id number] / [id number]
[2017-08-22] MEDS ORDERED: LACTOBACILLUS RHAMNOSUS GG 1 CAPSULE. PO SCH (21:00)
[2017-08-24] MEDS ORDERED: metFORMIN 500 MG TABLET PO SCH (08:00)
== END 2017-08-22 10:00 | disposition home or self-care (01) ==
LOC: ER 16:05 → INTOOBSV 20:20 → 1 SOUTH 20:20
PROVIDERS: ADMIT Internal Medicine; ATTEND Internal Medicine
DX: R07.9 Chest pain, unspecified (principal); E66.01 Morbid (severe) obesity due to excess calories; G47.30 Sleep apnea, unspecified; E11.9 Type 2 diabetes mellitus without complications; E44.1 Mild protein-calorie malnutrition; M79.7 Fibromyalgia; G20 Parkinson's disease; F17.210 Nicotine dependence, cigarettes, uncomplicated; J44.9 Chronic obstructive pulmonary disease, unspecified; Z82.49 Family history of ischemic heart disease and other diseases of the circulatory system; Z86.73 Personal history of transient ischemic attack (TIA), and cerebral infarction without residual deficits
CPT/HCPCS: 36415; 70450; 71010; 71275; 80047; 80053; 80076; 80307; 81001; 82550; 82947; 83605; 83690; 83880; 84484; 85025; 85379; 85610; 85651; 85730; 93005; 94640; 96361; 96365; 96372; 99285; G0378; J1650; J1956; J7620; Q9967; G0379; G0479; J7030

== ENCOUNTER → 2018-01-16 | Outpatient (CLI) | payer OTHER ==
[~2018-01-16] MED LIST changes: +METF500T4 PO; +RANI150C PO; +VARE1TAB20 PO
[2018-01-16 13:21] LABS: ALBUMIN 3.2 g/dL (3.4-5.0); ALBUMIN/GLOBULIN RATIO 0.9 (1.0-1.7); CALCIUM 9.3 mg/dL (8.5-10.1); CREATININE 0.9 mg/dL (0.6-1.0); GFR 67.4; POTASSIUM 4.3 mmol/L (3.5-5.1); TOTAL BILIRUBIN 0.2 mg/dL (0.2-1.0); TOTAL PROTEIN 6.9 g/dL (6.4-8.2)
[2018-01-16 13:38] LABS: THYROID STIM HORMONE (TSH) 3.386 uIU/mL (0.358-3.740)
== END | disposition home or self-care (01) ==
LOC: LAB 10:00
PROVIDERS: ATTEND Family Medicine
DX: Z11.4 Encounter for screening for human immunodeficiency virus [HIV] (principal); E11.69 Type 2 diabetes mellitus with other specified complication; E78.5 Hyperlipidemia, unspecified
CPT/HCPCS: 36415; 80053; 80061; 84443; 86703

== ENCOUNTER 2018-02-20 20:14 | Emergency (ER) | payer OTHER ==
[~2018-02-20] VITALS: Ht 162.6 cm; Wt 86.2 kg
[~2018-02-20 20:14] MED LIST changes: -METF500T4 PO; +METF500T5 PO
[2018-02-20 20:30] VITALS: BP 127/77
[2018-02-20] MEDS ORDERED: predniSONE 20 MG TABLET PO ONE (21:30)
[2018-02-20] MEDS ORDERED: diphenhydrAMINE HCL 25 MG CAPSULE PO ONE (21:30)
[2018-02-20] MEDS ORDERED: PRED20TA PO (22:17)
--- NOTE | 2018-02-20 22:17 | PHYS DOC ---
Past History Past Medical History: Diabetes, Fibromyalgia, Other Past Surgical History: Cholecystectomy, Hysterectomy, Tonsillectomy Smoking: Greater than 1 pack/day Alcohol Use: None Drug Use: None Adult General Chief Complaint Chief Complaint: ALLERGIC REACTION HPI HPI 47-year-old female with a history of allergic type reactions which she describes as almost daily over the last 2 years. Patient states different parts of her anatomy will evolve edema. She does not have fleas changes difficulty breathing or shortness of breath associated with these episodes. Patient has never had any swelling endanger her airway. Today she has some edema around her left eye. She is able to see normally and her eye is open spontaneously. Patient has no airway involvement today and no lip or tongue swelling. Denies voice changes shortness of breath. She is not currently on steroids. She has not taken Benadryl for days. Review of Systems Review of Systems Constitutional: Denies fever or chills [] Eyes: Denies change in visual acuity, redness, or eye pain [] HENT: Denies nasal congestion or sore throat [] Respiratory: Denies cough or shortness of breath [] Cardiovascular: No additional information not addressed in HPI [] GI: Denies abdominal pain, nausea, vomiting, bloody stools or diarrhea [] : Denies dysuria or hematuria [] Musculoskeletal: Denies back pain or joint pain [] Integument: Denies rash or skin lesions [] Neurologic: Denies headache, focal weakness or sensory changes [] Endocrine: Denies polyuria or polydipsia [] All other systems were reviewed and found to be within normal limits, except as documented in this note. Current Medications Current Medications Current Medications Medications (Trade) Dose Ordered Sig/Rafat Start Time Stop Time Status Last Admin Dose Admin Diphenhydramine HCl (Benadryl) 50 mg 1X ONCE 02/20/18 21:30 02/20/18 21:31 DC 02/20/18 21:30 50 MG Prednisone (Prednisone) 60 mg 1X ONCE 02/20/18 21:30 02/20/18 21:31 DC 02/20/18 21:30 60 MG Allergies Allergies Allergies Coded Allergies Type Severity Reaction Last Updated Verified codeine Allergy Intermediate Rash 08/21/17 Yes Physical Exam Physical Exam Well-appearing patient. Mild left periorbital edema. Normal and painless extraocular muscle excursion with no diplopia. Patient's pupil, iris, and sclera are normal-appearing. There is edema but no erythema or warmth. No airway involvement and normal voice. Specifically no stridor Constitutional: Well developed, well nourished, no acute distress, non-toxic appearance. [] HENT: Normocephalic, atraumatic, bilateral external ears normal, oropharynx moist, no oral exudates, nose normal. [] Eyes: PERRLA, EOMI, conjunctiva normal, no discharge. [] Neck: Normal range of motion, no tenderness, supple, no stridor. [] Cardiovascular:Heart rate regular rhythm, no murmur [] Lungs & Thorax: Bilateral breath sounds clear to auscultation [] Abdomen: Bowel sounds normal, soft, no tenderness, no masses, no pulsatile masses. [] Skin: Warm, dry, no erythema, no rash. [] Back: No tenderness, no CVA tenderness. [] Extremities: No tenderness, no cyanosis, no clubbing, ROM intact, no edema. [] Neurologic: Alert and oriented X 3, normal motor function, normal sensory function, no focal deficits noted. [] Psychologic: Affect normal, judgement normal, mood normal. [] Current Patient Data Vital Signs Vital Signs Date Time Temp Pulse Resp B/P (MAP) Pulse Ox O2 Delivery O2 Flow Rate FiO2 02/20/18 20:30 98.2 81 20 98 Room Air EKG EKG [] Radiology/Procedures Radiology/Procedures [] Course & Med Decision Making Course & Med Decision Making Pertinent Labs and Imaging studies reviewed. (See chart for details) Signs and symptoms consistent with episode of edema typical for this patient as she describes almost daily for 2 years. She has no clinical evidence of cellulitis and no fevers chills sweats or shaking chills. All the area around her left eye has edema there is no erythema or warmth. Benadryl administered and steroid dose given and prescription dispensed. No further workup or treatment indicated at this time. Patient agrees with outpatient follow-up and strict return precautions given Dragon Disclaimer Dragon Disclaimer This electronic medical record was generated, in whole or in part, using a voice recognition dictation system. Departure Departure: Impression: Primary Impression: Allergic reaction Additional Impression: Periorbital edema of left eye Disposition: 01 HOME, SELF-CARE Condition: IMPROVED Referrals: CAROL ANN SANTOS APRN (PCP) Additional Instructions: You have edema around her left eye. It is unclear what the cause of this is but as you described is consistent with symptoms you've been experiencing on an almost daily basis for 2 years. Take Benadryl 50 mg every 4-6 hours as needed. Finish prednisone as prescribed once a day for 5 days. Follow-up with your doctor in 1 day for reevaluation and to continue your outpatient workup for definitive diagnosis. Scripts Prednisone (PREDNISONE) 20 Mg Tablet 60 MG PO DAILY for 5 Days, #15 TAB Prov: RASTA ACHARYA MD 02/20/18 Problem Qualifiers RASTA ACHARYA MD February 20, 2018 22:17
== END 2018-02-20 22:20 | disposition home or self-care (01) ==
LOC: ER 20:14
DX: T78.40XA Allergy, unspecified, initial encounter (principal); H02.846 Edema of left eye, unspecified eyelid; E11.9 Type 2 diabetes mellitus without complications; M79.7 Fibromyalgia; F17.200 Nicotine dependence, unspecified, uncomplicated; Z88.5 Allergy status to narcotic agent; X58.XXXA Exposure to other specified factors, initial encounter
CPT/HCPCS: 99283; J7512; Q0163

== ENCOUNTER 2018-12-05 12:14 | Emergency (ER) | payer OTHER ==
[~2018-12-05] VITALS: Ht 162.6 cm; Wt 99.3 kg
[~2018-12-05 12:14] MED LIST changes: +ALBU2.5V8 IH; -ALBU8.5H8 IH; +HYDR-2145 PO; -HYDR25TA9 PO; +METF500T16 PO; -METF500T5 PO; +PRED20TA PO
[2018-12-05 12:56] LABS: BASO # 0.1 x10^3/uL (0.0-0.2); BASO % 1 % (0-3); EOS # 0.2 x10^3/uL (0.0-0.7); EOS % 2 % (0-3); HEMATOCRIT 41.1 % (36.0-47.0); HEMOGLOBIN 13.7 g/dL (12.0-15.5); LYMPH # 3.2 x10^3/uL (1.0-4.8); LYMPH % 27 % (24-48); MEAN CORPUSCULAR HEMOGLOBIN 29 pg (25-35); MEAN CORPUSCULAR HGB CONC 33 g/dL (31-37); MEAN CORPUSCULAR VOLUME 86 fL (79-100); MONO # 0.7 x10^3/uL (0.0-1.1); MONO % 6 % (0-9); NEUT # 7.7 x10^3uL (1.8-7.7); NEUT % 65 % (31-73); PLATELET COUNT 306 x10^3/uL (140-400); RED BLOOD COUNT 4.75 x10^6/uL (3.50-5.40); RED CELL DISTRIBUTION WIDTH 13.9 % (11.5-14.5); WHITE BLOOD COUNT 11.9 x10^3/uL (4.0-11.0)
--- NOTE | 2018-12-05 13:14 | RAD ---
CT HEAD INDICATION: Syncope, altered mental status, fall COMPARISON: 08/21/2017 Exposure: One or more of the following individualized dose reduction techniques were utilized for this examination: 1. Automated exposure control 2. Adjustment of the mA and/or kV according to patient size 3. Use of iterative reconstruction technique TECHNIQUE: 5 mm contiguous axial images were obtained from the skull base to the vertex in both bone and soft tissue algorithm. FINDINGS: No abnormal attenuation within the brain parenchyma. No evidence of acute intracranial hemorrhage. No extra-axial fluid collections. No mass effect or midline shift. Ventricular size is appropriate. Basal cisterns are patent. No fractures identified.Brewer-white differentiation is preserved.Globes and orbits are within normal limits. Paranasal sinuses and mastoid air cells are clear. IMPRESSION: No acute intracranial findings. Electronically signed by: Erich Duque MD (12/05/2018 1:11 PM) [id number]
[2018-12-05 13:15] LABS: ALBUMIN 3.3 g/dL (3.4-5.0); ALBUMIN/GLOBULIN RATIO 0.9 (1.0-1.7); CALCIUM 8.8 mg/dL (8.5-10.1); CREATININE 0.8 mg/dL (0.6-1.0); GFR 76.9; MAGNESIUM 1.9 mg/dL (1.8-2.4); POTASSIUM 4.2 mmol/L (3.5-5.1); TOTAL BILIRUBIN 0.1 mg/dL (0.2-1.0); TOTAL PROTEIN 7.1 g/dL (6.4-8.2)
--- NOTE | 2018-12-05 13:18 | RAD ---
AP portable chest radiograph 12/05/2018 Clinical History: Syncope, dizziness and chest pain. An AP erect portable digital radiograph of the chest was obtained. Comparison study is dated 08/21/2017. The cardiac and mediastinal silhouettes are within normal limits in size and configuration. No acute pulmonary infiltrate is seen. No pleural effusion or pneumothorax is noted. The osseous structures are grossly intact. Impression: No acute abnormality is seen. Electronically signed by: Misael Garcia MD (12/05/2018 1:15 PM) [facility]
[2018-12-05 14:09] LABS: AMPHETAMINE/METHAMPHETAMINE NEG (NEG); BARBITURATES NEG (NEG); BENZODIAZEPINES NEG (NEG); CANNABINOIDS NEG (NEG); COCAINE NEG (NEG); METHADONE POS (NEG); OPIATES NEG (NEG); PHENCYCLIDINE NEG (NEG)
[2018-12-05 14:12] LABS: BILIRUBIN,URINE NEG (NEG); CLARITY,URINE HAZY; COLOR,URINE AMBER; GLUCOSE,URINE 100 mg/dL (NEG)
--- NOTE | 2018-12-05 14:12 | PHYS DOC ---
Past History Past Medical History: Diabetes, Other Past Surgical History: Hysterectomy Smoking: Greater than 1 pack/day Alcohol Use: None Drug Use: None Adult General Chief Complaint Chief Complaint: CHEST PAIN HPI HPI Patient is a 48 year old female who brought in by EMS because of chest pain and syncope. Patient complaining of intermittent episodes of left sided chest pain for the last 2 or 3 days as a pressure pain with radiation to left shoulder and numbness of left upper extremity, associated with nausea and palpitation that usually lasts about 20 minutes and rated her pain 6/10. Patient states she gets the episodes of chest pain 3-4 times a day and denies history of previous episodes of chest pain. 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 Patient mother states she had a syncopal episode that last for several minutes without seizure activity like her previous episode of syncope. She was confused at arrival EMS. Patient treated for 324 mg of aspirin and denies chest pain in ER. Patient diagnosed with Parkinson several years ago and had intermittent episodes of syncope for several years extensive evaluation without finding abnormal pathology. Review of Systems Review of Systems Constitutional: Denies fever or chills [] Eyes: Denies change in visual acuity, redness, or eye pain [] HENT: Denies nasal congestion or sore throat [] Respiratory: Denies cough or shortness of breath [] Cardiovascular: No additional information not addressed in HPI [] GI: Denies abdominal pain, nausea, vomiting, bloody stools or diarrhea [] : Denies dysuria or hematuria [] Musculoskeletal: Denies back pain or joint pain [] Integument: Denies rash or skin lesions [] Neurologic: Denies headache, focal weakness or sensory changes [] Endocrine: Denies polyuria or polydipsia [] All other systems were reviewed and found to be within normal limits, except as documented in this note. Allergies Allergies Allergies Coded Allergies Type Severity Reaction Last Updated Verified codeine Allergy Intermediate Rash 08/21/17 Yes Physical Exam Physical Exam Constitutional: Well nourished, no acute distress, non-toxic appearance. [] HENT: Normocephalic, atraumatic, oropharynx moist, no oral exudates, nose normal. [] Eyes: PERRLA, EOMI, conjunctiva normal, no discharge. [] Neck: Normal range of motion, no tenderness, supple, no stridor. [] Cardiovascular:Heart rate regular rhythm, no murmur [] Lungs & Thorax: Bilateral breath sounds clear to auscultation [] Abdomen: Bowel sounds normal, soft, no tenderness, no masses, no pulsatile masses. [] Skin: Warm, dry, no erythema, no rash. [] Back: No tenderness, no CVA tenderness. [] Extremities: No tenderness, no cyanosis, no clubbing, ROM intact, no edema. [] Neurologic: Alert and oriented X 3, normal motor function, normal sensory function, no focal deficits noted. [] Psychologic: Affect normal, judgement normal, mood normal. [] Current Patient Data Vital Signs Vital Signs Date Time Temp Pulse Resp B/P (MAP) Pulse Ox O2 Delivery O2 Flow Rate FiO2 12/05/18 12:25 92 22 100 Room Air Lab Results Laboratory Tests Test 12/05/18 12:18 12/05/18 12:33 White Blood Count 11.9 x10^3/uL (4.0-11.0) H Red Blood Count 4.75 x10^6/uL (3.50-5.40) Hemoglobin 13.7 g/dL (12.0-15.5) Hematocrit 41.1 % (36.0-47.0) Mean Corpuscular Volume 86 fL (79-100) Mean Corpuscular Hemoglobin 29 pg (25-35) Mean Corpuscular Hemoglobin Concent 33 g/dL (31-37) Red Cell Distribution Width 13.9 % (11.5-14.5) Platelet Count 306 x10^3/uL (140-400) Neutrophils (%) (Auto) 65 % (31-73) Lymphocytes (%) (Auto) 27 % (24-48) Monocytes (%) (Auto) 6 % (0-9) Eosinophils (%) (Auto) 2 % (0-3) Basophils (%) (Auto) 1 % (0-3) Neutrophils # (Auto) 7.7 x10^3uL (1.8-7.7) Lymphocytes # (Auto) 3.2 x10^3/uL (1.0-4.8) Monocytes # (Auto) 0.7 x10^3/uL (0.0-1.1) Eosinophils # (Auto) 0.2 x10^3/uL (0.0-0.7) Basophils # (Auto) 0.1 x10^3/uL (0.0-0.2) PTT 25 SEC (23-33) Sodium Level 138 mmol/L (136-145) Potassium Level 4.2 mmol/L (3.5-5.1) Chloride Level 104 mmol/L (98-107) Carbon Dioxide Level 28 mmol/L (21-32) Anion Gap 6 (6-14) Blood Urea Nitrogen 13 mg/dL (7-20) Creatinine 0.8 mg/dL (0.6-1.0) Estimated GFR (Cockcroft-Gault) 76.9 BUN/Creatinine Ratio 16 (6-20) Glucose Level 235 mg/dL (70-99) H Calcium Level 8.8 mg/dL (8.5-10.1) Magnesium Level 1.9 mg/dL (1.8-2.4) Total Bilirubin 0.1 mg/dL (0.2-1.0) L Aspartate Amino Transferase (AST) 18 U/L (15-37) Alanine Aminotransferase (ALT) 27 U/L (14-59) Alkaline Phosphatase 105 U/L (46-116) Creatine Kinase 53 U/L (26-192) Troponin I Quantitative < 0.017 ng/mL (0-0.055) RA-Vik-E-Type Natriuretic Peptide 16 pg/mL (0-124) Total Protein 7.1 g/dL (6.4-8.2) Albumin 3.3 g/dL (3.4-5.0) L Albumin/Globulin Ratio 0.9 (1.0-1.7) L Lipase 170 U/L (73-393) Glucose (Fingerstick) 246 mg/dL (70-99) H EKG EKG EKG interpreted by me. EKG at 1222 showed normal sinus rhythm at rate of 100, incomplete right bundle-branch block, poor R-wave progress in anteroseptal leads , no acute ST or T-wave abnormalities. Radiology/Procedures Radiology/Procedures [][address] [address] IMAGING REPORT Signed PATIENT: HOMERJACKIE M ACCOUNT: [id number] : 1970 LOCATION: ER AGE: 48 SEX: F EXAM STATUS: REG ER ORD. PHYSICIAN: ABBY GONZALEZ MD REASON: syncope and chest pain PROCEDURE: PORTABLE CHEST 1V AP portable chest radiograph 12/05/2018 Clinical History: Syncope, dizziness and chest pain. An AP erect portable digital radiograph of the chest was obtained. Comparison study is dated 08/21/2017. The cardiac and mediastinal silhouettes are within normal limits in size and configuration. No acute pulmonary infiltrate is seen. No pleural effusion or pneumothorax is noted. The osseous structures are grossly intact. Impression: No acute abnormality is seen. Electronically signed by: Misael Garcia MD (12/05/2018 1:15 PM) [facility] [place]ATED AND SIGNED BY: MISAEL GARCIA MD DATE: 12/05/18 [id number] CC: CAROL ANN SANTOS APRN; ABBY GONZALEZ MD ~ [address] [address] IMAGING REPORT Signed PATIENT: JACKIE CORONEL ACCOUNT: [id number] : 1970 LOCATION: ER AGE: 48 SEX: F EXAM STATUS: REG ER ORD. PHYSICIAN: ABBY GONZALEZ MD REASON: syncope and chest pain PROCEDURE: CT HEAD WO CONTRAST CT HEAD INDICATION: Syncope, altered mental status, fall COMPARISON: 08/21/2017 Exposure: One or more of the following individualized dose reduction techniques were utilized for this examination: 1. Automated exposure control 2. Adjustment of the mA and/or kV according to patient size 3. Use of iterative reconstruction technique TECHNIQUE: 5 mm contiguous axial images were obtained from the skull base to the vertex in both bone and soft tissue algorithm. FINDINGS: No abnormal attenuation within the brain parenchyma. No evidence of acute intracranial hemorrhage. No extra-axial fluid collections. No mass effect or midline shift. Ventricular size is appropriate. Basal cisterns are patent. No fractures identified.Brewer-white differentiation is preserved.Globes and orbits are within normal limits. Paranasal sinuses and mastoid air cells are clear. IMPRESSION: No acute intracranial findings. Electronically signed by: Erich Duque MD (12/05/2018 1:11 PM) [facility] DICTATED AND SIGNED BY: ERICH DUQUE MD DATE: 12/05/18 9682 CC: CAROL ANN SANTOS APRN; ABBY GONZALEZ MD ~ Course & Med Decision Making Course & Med Decision Making Pertinent Labs and Imaging studies reviewed. (See chart for details) Evaluation of patient in ER showed 48-year-old female patient with multiple medical problems brought in by EMS because of intermittent episodes of chest pain for a few days and syncope today. Patient had history of episodes of syncope and confusion after syncope. Patient was alert and oriented and denied chest pain in ER. Patient had unremarkable evaluation except for elevation of blood sugar and positive urine for methadone as her home medication. Plan discharge patient home to diagnose of current chest pain and syncope and instruction to follow up with her primary care physician. Dragon Disclaimer Dragon Disclaimer This electronic medical record was generated, in whole or in part, using a voice recognition dictation system. Departure Departure: Impression: Primary Impression: Recurrent chest pain Additional Impressions: Syncope Uncontrolled diabetes mellitus History of Parkinson's disease Confusion Disposition: HOME, SELF-CARE (at 1411) Condition: IMPROVED Referrals: CAROL ANN SANTOS APRN (PCP) Patient Instructions: Chest Pain (Nonspecific), Syncope Additional Instructions: Drink plenty of liquids Follow-up with your primary care physician in 2-3 days Return to ER if not getting better Problem Qualifiers ABBY GONZALEZ MD Dec 05, 2018 14:12
[2018-12-05 14:13] LABS: BACTERIA,URINE 0 /HPF (0-FEW); NITRITE,URINE NEG (NEG); RBC,URINE OCC /HPF (0-2); SQUAMOUS EPITHELIAL CELL,UR OCC /LPF; UROBILINOGEN,URINE 0.2 mg/dL (0.2 mg/dL); WBC,URINE 0 /HPF (0-4)
[2018-12-05 14:15] VITALS: BP 121/75
--- NOTE | 2018-12-05 18:30 | EKG ---
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
== END 2018-12-05 14:28 | disposition home or self-care (01) ==
LOC: ER 12:14
DX: R07.89 Other chest pain (principal); R55 Syncope and collapse; E11.65 Type 2 diabetes mellitus with hyperglycemia; G20 Parkinson's disease; R41.0 Disorientation, unspecified; F17.200 Nicotine dependence, unspecified, uncomplicated; Z88.5 Allergy status to narcotic agent
CPT/HCPCS: 36415; 70450; 71045; 80053; 80307; 81001; 82550; 82947; 83690; 83735; 83880; 84484; 85025; 85730; 93005; 99284

== ENCOUNTER 2019-03-03 14:37 | Emergency (ER) | payer OTHER ==
[~2019-03-03] VITALS: Ht 162.6 cm; Wt 94.3 kg
[2019-03-03 15:00] VITALS: BP 127/69
[2019-03-03] MEDS ORDERED: SULF1TAB24 PO (15:36)
--- NOTE | 2019-03-03 15:36 | PHYS DOC ---
Past History Past Medical History: Dementia, Diabetes, Other Past Surgical History: Cholecystectomy, Hysterectomy Smoking: Greater than 1 pack/day Alcohol Use: None Drug Use: None Adult General Chief Complaint Chief Complaint: WOUND CHECK HPI HPI Patient is a 48-year-old female presents with a nonhealing wound to the back of her right hand. This has been present for approximately the past 2 months. She reports that it itches. There has been no drainage. Nothing seems to make the symptoms better or worse. She reports there is some discomfort in her forearm today. No fevers.[] Review of Systems Review of Systems Constitutional: Denies fever or chills [] Eyes: Denies change in visual acuity, redness, or eye pain [] HENT: Denies nasal congestion or sore throat [] Respiratory: Denies cough or shortness of breath [] Cardiovascular: No chest pain or palpitations[] GI: Denies abdominal pain, nausea, vomiting, bloody stools or diarrhea [] : Denies dysuria or hematuria [] Musculoskeletal: Denies back pain or joint pain [] Integument: See history of present illness[] Neurologic: Denies headache, focal weakness or sensory changes [] Endocrine: Denies polyuria or polydipsia [] All other systems were reviewed and found to be within normal limits, except as documented in this note. Allergies Allergies Allergies Coded Allergies Type Severity Reaction Last Updated Verified codeine Allergy Intermediate Rash 08/21/17 Yes Physical Exam Physical Exam Constitutional: Well developed, well nourished, no acute distress, non-toxic appearance. [] HENT: Normocephalic, atraumatic, bilateral external ears normal, oropharynx moist, no oral exudates, nose normal. [] Eyes: PERRLA, EOMI, conjunctiva normal, no discharge. [] Neck: Normal range of motion, no tenderness, supple, no stridor. [] Cardiovascular:Heart rate regular rhythm, no murmur [] Lungs & Thorax: Bilateral breath sounds clear to auscultation [] Abdomen: Examined. [] Skin: Warm, dry, excoriation on the dorsal wrist is approximately 1 cm in diameter. Local erythema is present There is no axillary lymphadenopathy present. No fluctuance noted.. [] Back: No tenderness, no CVA tenderness. [] Extremities: No tenderness, no cyanosis, no clubbing, ROM intact, no edema. [] Neurologic: Alert and oriented X 3, normal motor function, normal sensory function, no focal deficits noted. [] Psychologic: Affect normal, judgement normal, mood normal. [] Current Patient Data Vital Signs Vital Signs Date Time Temp Pulse Resp B/P (MAP) Pulse Ox O2 Delivery O2 Flow Rate FiO2 03/03/19 15:00 98.1 106 20 97 Room Air EKG EKG [] Radiology/Procedures Radiology/Procedures [] Course & Med Decision Making Course & Med Decision Making Pertinent Labs and Imaging studies reviewed. (See chart for details) Medical decision making: There is no evidence of staph scalded skin syndrome, toxic epidermal necrolysis, Lyme disease, nor a significant abscess. Believe this to be an excoriation with poor healing partially is result of her tobacco use. Will provide a wound dressing, as well as antibiotics to decrease the overall bacterial load to allow for better wound healing.[] Dragon Disclaimer Dragon Disclaimer This electronic medical record was generated, in whole or in part, using a voice recognition dictation system. Departure Departure: Impression: Primary Impression: Excoriation Disposition: 01 HOME, SELF-CARE Condition: IMPROVED Referrals: CAROL ANN SANTOS APRN (PCP) Follow-up in 2 days Patient Instructions: Wound Care, [id number] Additional Instructions: Follow-up with your regular doctor in 2 days. Keep the wound covered. This can be accomplished with either standard dressing such as Band-Aids, or there are new were products that have a gel impregnated in the bandage itself. Return to the ER if worsening pain, purulent drainage, fever of more than 101, or any other concerns. Scripts Sulfamethoxazole/Trimethoprim (BACTRIM DS TABLET) 1 Each Tablet 1 TAB PO BID for WOUND, #20 TAB Prov: TERRELL GLYNN DO 03/03/19 TERRELL GLYNN DO March 03, 2019 15:36
== END 2019-03-03 15:42 | disposition home or self-care (01) ==
LOC: ER 14:37
DX: S60.511A Abrasion of right hand, initial encounter (principal); E11.9 Type 2 diabetes mellitus without complications; F03.90 Unspecified dementia, unspecified severity, without behavioral disturbance, psychotic disturbance, mood disturbance, and anxiety; F17.200 Nicotine dependence, unspecified, uncomplicated; Z88.5 Allergy status to narcotic agent; X58.XXXA Exposure to other specified factors, initial encounter; Y93.89 Activity, other specified; Y92.89 Other specified places as the place of occurrence of the external cause; Y99.8 Other external cause status
CPT/HCPCS: 99283

== ENCOUNTER 2020-10-03 14:08 | Emergency (ER) | payer OTHER ==
[~2020-10-03] VITALS: Ht 157.5 cm; Wt 91.0 kg
[~2020-10-03 14:08] MED LIST changes: +CARB1TAB22 PO; +DIPH25CA58 PO; +EXEN2PEN SQ; +GABA800T5 PO; +HYDR-2763 PO; +METF10007 PO; +PROP20TA PO; -ROPI0.5T2 PO; +ROPI0.5T4 PO; +SULF1TAB24 PO; +VARE1TAB21 PO
--- NOTE | 2020-10-03 14:19 | PHYS DOC ---
Past History Past Medical History: Dementia, Diabetes, Fibromyalgia, TIA, Other Additional Past Medical Histor: PARKINSONS Past Surgical History: Cholecystectomy, Hysterectomy Smoking: Greater than 1 pack/day Alcohol Use: None Drug Use: None Adult General HPI HPI Patient is a 50-year-old female presents emergency department via EMS for seizure-like activity just prior to arrival. EMS stroboscope operator reports he was told by patient's that he witnessed her fall to the to the ground first striking her forehead on the wall and then have full body convulsions that lasted approximately 1 minute. EMS stroboscope operator reports he arrived on scene to find patient in a postictal state, he did not apply oxygen because her O2 sat was 99%, he stated the patient became alert and oriented x3 while in route to emergency department. Patient states that she has been seen by her primary physician several times over the past several months for passing out spells and was told that she was having brain seizures. Patient states that she does not have a history of grand mal seizures. Patient reports she does not remember the event that brought her to the emergency department, she states the last thing she remembers she was cooking dinner in the kitchen and started to feel dizzy just like her past dizzy spells that she has been being seen for by her primary doctor so she did not think anything of it she says the next thing she remembers was waking up while she was in the back of an ambulance heading to this emergency department. Patient states she did not lose continence of bowel or bladder, however she does report biting her tongue and her lower lip patient states her last menstrual period was approximately 19 years ago when she had her hysterectomy, she had a gallbladder removed 16 years ago and a T&A procedure when she was a child. Patient reports an allergy to codeine. 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 Patient denies any other aches or pains, denies recent fever or chills, denies nasal congestion, shortness of breath, chest pain, or chest palpitations. Patient denies any pain to her extremities, denies any numbness or tingling to her extremities. Patient denies urinary tract infection symptoms, denies STI concerns. Patient denies any other physical complaints or physical concerns. Review of Systems Review of Systems 14 body systems of review of systems have been reviewed. See HPI for pertinent positives and negative responses, otherwise all other systems are negative, nonpertinent or noncontributory. Allergies Allergies Allergies Coded Allergies Type Severity Reaction Last Updated Verified codeine Allergy Intermediate Rash 08/21/17 Yes Physical Exam Physical Exam Constitutional: Well developed, well nourished, no acute distress, non-toxic appearance. HENT: Normocephalic, atraumatic, bilateral external ears normal, oropharynx moist, no oral exudates, nose normal. No bite mendez noted on patient's tongue, there is a small 1/2 cm contusion to lower lip consistent with bite koki. Skin is intact there is no bleeding, no signs of infectious process noted. Eyes: PERRLA, EOMI, conjunctiva normal, no discharge. Neck: Normal range of motion, no tenderness, supple, no stridor. Cardiovascular:Heart rate regular rhythm, no murmur Lungs & Thorax: Bilateral breath sounds clear to auscultation Abdomen: Bowel sounds normal, soft, no tenderness, no masses, no pulsatile masses. Skin: Warm, dry, no erythema, no rash. Back: No tenderness, no CVA tenderness. Extremities: No tenderness, no cyanosis, no clubbing, ROM intact, no edema. Neurologic: Alert and oriented X 3, normal motor function, normal sensory function, no focal deficits noted. Psychologic: Affect normal, judgement normal, mood normal. EKG EKG Reviewed twelve-lead EKG performed by EMS stroboscope operator in route to hospital shows heart rate of 115 bpm sinus tachycardia without ectopy MN interval 0.114, QT interval 0.336, QTc 0.432. There is no STEMI, no ACS, no ischemia noted, EKG reviewed by attending ED physician Dr. Gardner. Radiology/Procedures Radiology/Procedures STATUS: REG ER ORD. PHYSICIAN: RASTA MUNOZ APRN REASON: NEW ONSET SEIZURE PROCEDURE: CT HEAD WO CONTRAST CT HEAD INDICATION: Reason: NEW ONSET SEIZURE / Spl. Instructions: / History: COMPARISON: None Available. Exposure: One or more of the following individualized dose reduction techniques were utilized for this examination: 1. Automated exposure control 2. Adj ustment of the mA and/or kV according to patient size 3. Use of iterative reconstruction technique TECHNIQUE: 5 mm contiguous axial images were obtained from the skull base to the vertex in both bone and soft tissue algorithm. FINDINGS: No abnormal attenuation within the brain parenchyma. No evidence of acute intracranial hemorrhage. No extra-axial fluid collections. No mass effect or midline shift. Ventricular size is appropriate. Basal cisterns are patent. No fractures identified.Brewer-white differentiation is preserved.Globes and orbits are within normal limits. Paranasal sinuses and mastoid air cells are clear. IMPRESSION: No acute intracranial findings. Electronically signed by: Erich Duque MD (10/03/2020 3:31 PM) [id number] DICTATED AND SIGNED BY: ERICH DUQUE MD DATE: 10/03/20 1525 CC: RASTA MUNOZ APRN; CHAVEZ GARDNER DO; CAROL ANN DELGADILLO MD ~MTH0 0 Heart Score Risk Factors: Risk Factors: DM, Current or recent (<one month) smoker, HTN, HLP, family history of CAD, obesity. Risk Scores: Risk Factors: DM, Current or recent (<one month) smoker, HTN, HLP, family history of CAD, obesity. Course & Med Decision Making Course & Med Decision Making Pertinent Labs and Imaging studies reviewed. (See chart for details) 50-year-old female presents emergency department new onset seizure-like activity most likely grand mal seizure per EMS reports given by patient's . A work-up was initiated in the emergency department. Patient's lab work was unremarkable, patient CT head was read negative by house radiologist interpretation. Reviewed results with patient and strict need to follow-up with neurologist this week. Patient gave verbal understanding of follow-up with neurologist this week, see her attending physician this week, return to the emergency department precautions and concerns, patient had no further questions or concerns, patient discharged home without incident. Patient did not exhibit any mental status changes or seizure-like activity during her emergency department stay. Patient did not exhibit any postictal state during her emergency department stay. Diagnosis of new onset seizure given. Patient's only abnormal vital sign was sinus tachycardia upon arrival to the emergency department, however patient's heart rate decreased to normal beats per minute, vital signs remained stable throughout ER stay. Dragon Disclaimer Dragon Disclaimer This electronic medical record was generated, in whole or in part, using a voice recognition dictation system. Departure Departure: Impression: Primary Impression: New onset seizure Disposition: 01 DC HOME SELF CARE/HOMELESS Condition: STABLE Referrals: CAROL ANN DELGADILLO MD (PCP) Patient Instructions: Seizure, Adult Additional Instructions: You are seen for a seizure today, the CT scan of your head did not show any concerning abnormalities, please take your medications as prescribed, please contact your primary care doctor to let them know you had a seizure, please follow-up with a neurologist this week, you may use warm salt water swishes for your oral discomfort or you bit your tongue in your lip during your seizure. Please return to the emergency department for worsening symptoms or further concerns. RASTA MUNOZ CODING SPECIALIST HOME HEALTH Oct 03, 2020 14:19
--- NOTE | 2020-10-03 15:33 | RAD ---
CT HEAD INDICATION: Reason: NEW ONSET SEIZURE / Spl. Instructions: / History: COMPARISON: None Available. Exposure: One or more of the following individualized dose reduction techniques were utilized for thi s examination: 1. Automated exposure control 2. Adjustment of the mA and/or kV according to patient size 3. Use of iterative reconstruction technique TECHNIQUE: 5 mm contiguous axial images were obtained from the skull base to the vertex in both bone and soft tissue algorithm. FINDINGS: No abnormal attenuation within the brain parenchyma. No evidence of acute intracranial hemorrhage. No extra-axial fluid collections. No mass effect or midline shift. Ventricular size is appropriate. Basal cisterns are patent. No fractures identified.Brewer-white differentiation is preserved.Globes and orbits are within normal l imits. Paranasal sinuses and mastoid air cells are clear. IMPRESSION: No acute intracranial findings. Electronically signed by: Erich Duque MD (10/03/2020 3:31 PM) [id number]
[2020-10-03 15:53] LABS: CALCIUM 8.7 mg/dL (8.5-10.1); CREATININE 0.8 mg/dL (0.6-1.0); GFR 76.2; POTASSIUM 4.1 mmol/L (3.5-5.1)
[2020-10-03 15:53] LABS: BARBITURATES NEG (NEG); BENZODIAZEPINES NEG (NEG); CANNABINOIDS NEG (NEG); COCAINE NEG (NEG); METHADONE POS (NEG); OPIATES NEG (NEG); PHENCYCLIDINE NEG (NEG)
[2020-10-03 15:54] LABS: BACTERIA,URINE FEW /HPF (0-FEW); BILIRUBIN,URINE NEG (NEG); CLARITY,URINE HAZY; COLOR,URINE YELLOW; GLUCOSE,URINE NEG (NEG); NITRITE,URINE NEG (NEG); RBC,URINE OCC /HPF (0-2); SQUAMOUS EPITHELIAL CELL,UR FEW /LPF; UROBILINOGEN,URINE 0.2 mg/dL (0.2 mg/dL); WBC,URINE 0 /HPF (0-4)
[2020-10-03 15:55] LABS: AMPHETAMINE/METHAMPHETAMINE NEG (NEG)
[2020-10-03 15:58] LABS: ALBUMIN 3.2 g/dL (3.4-5.0); ALBUMIN/GLOBULIN RATIO 0.9 (1.0-1.7); BASO % 0 % (0-3); EOS # 0.2 x10^3/uL (0.0-0.7); EOS % 2 % (0-3); HEMATOCRIT 41.2 % (36.0-47.0); HEMOGLOBIN 13.3 g/dL (12.0-15.5); LYMPH # 2.2 x10^3/uL (1.0-4.8); LYMPH % 16 % (24-48); MEAN CORPUSCULAR HEMOGLOBIN 28 pg (25-35); MEAN CORPUSCULAR HGB CONC 32 g/dL (31-37); MEAN CORPUSCULAR VOLUME 88 fL (79-100); MONO # 0.8 x10^3/uL (0.0-1.1); MONO % 6 % (0-9); NEUT # 10.1 x10^3uL (1.8-7.7); NEUT % 76 % (31-73); PLATELET COUNT 332 x10^3/uL (140-400); TOTAL BILIRUBIN 0.2 mg/dL (0.2-1.0); TOTAL PROTEIN 6.9 g/dL (6.4-8.2); WHITE BLOOD COUNT 13.3 x10^3/uL (4.0-11.0)
[2020-10-03 17:00] VITALS: BP 126/77
== END 2020-10-03 17:12 | disposition home or self-care (01) ==
LOC: ER 14:08
DX: S00.531A Contusion of lip, initial encounter (principal); R56.9 Unspecified convulsions; E11.9 Type 2 diabetes mellitus without complications; M79.7 Fibromyalgia; Z86.73 Personal history of transient ischemic attack (TIA), and cerebral infarction without residual deficits; Z87.891 Personal history of nicotine dependence; Z90.49 Acquired absence of other specified parts of digestive tract; Z90.710 Acquired absence of both cervix and uterus; Z88.5 Allergy status to narcotic agent; W18.09XA Striking against other object with subsequent fall, initial encounter; Y93.89 Activity, other specified; Y92.89 Other specified places as the place of occurrence of the external cause; Y99.8 Other external cause status
CPT/HCPCS: 36415; 70450; 80053; 80307; 81001; 85025; 99284

== ENCOUNTER → 2021-11-24 | Outpatient (CLI) | payer OTHER ==
[~2021-11-24] MED LIST changes: +METH-570 PO; -METH10TA2 PO
[2021-11-24 10:15] LABS: BASO # 0.1 x10^3/uL (0.0-0.2); BASO % 0 % (0-3); EOS # 0.1 x10^3/uL (0.0-0.7); EOS % 1 % (0-3); HEMATOCRIT 40.1 % (36.0-47.0); LYMPH # 2.8 x10^3/uL (1.0-4.8); LYMPH % 21 % (24-48); MEAN CORPUSCULAR HEMOGLOBIN 29 pg (25-35); MEAN CORPUSCULAR HGB CONC 32 g/dL (31-37); MEAN CORPUSCULAR VOLUME 88 fL (79-100); MONO # 0.4 x10^3/uL (0.0-1.1); MONO % 3 % (0-9); NEUT # 10.1 x10^3uL (1.8-7.7); NEUT % 75 % (31-73); PLATELET COUNT 334 x10^3/uL (140-400); RED BLOOD COUNT 4.55 x10^6/uL (3.50-5.40); RED CELL DISTRIBUTION WIDTH 14.1 % (11.5-14.5); WHITE BLOOD COUNT 13.5 x10^3/uL (4.0-11.0)
[2021-11-24 10:29] LABS: ALBUMIN 3.5 g/dL (3.4-5.0); CALCIUM 8.7 mg/dL (8.5-10.1); CREATININE 0.9 mg/dL (0.6-1.0); GFR 66.3; POTASSIUM 4.7 mmol/L (3.5-5.1); TOTAL BILIRUBIN 0.2 mg/dL (0.2-1.0); TOTAL PROTEIN 7.1 g/dL (6.4-8.2)
[2021-11-25 22:11] LABS: ANA INTERP Negative (.)
== END ==
LOC: LAB 08:26
PROVIDERS: ATTEND Physician Assistant
DX: R21 Rash and other nonspecific skin eruption (principal)
CPT/HCPCS: 36415; 80053; 85025; 86038; 86481; 86705; 86709; 86803; 87340

== ENCOUNTER 2022-01-09 13:12 | Emergency (ER) | payer OTHER ==
[~2022-01-09] VITALS: Ht 157.5 cm; Wt 97.9 kg
[2022-01-09] MEDS ORDERED: CONTRAST GIVEN. MC PRN (13:30)
[2022-01-09] MEDS ORDERED: IOHEXOL 350 MG/ML 100 ML VIAL. IV ONE (13:30)
--- NOTE | 2022-01-09 13:47 | RAD ---
STUDY: CT head without contrast INDICATION: Code stroke. Left-sided weakness. COMPARISON: 10/03/2020 TECHNIQUE: Axial CT imaging through the head without the use of intravenous contrast. Sagittal and co beatriz reformats were obtained. One or more of the following individualized dose reduction techniques were utilized for this examinat ion: 1. Automated exposure control 2. Adjustment of the mA and/or kV according to patient size 3. Use of iterative reconstruction technique. FINDINGS: No acute intracranial hemorrhage. Brewer-white matter differentiation is maintained. No mass effect, mi dline shift or hydrocephalus. Unremarkable scalp, orbits and calvarium. No fluid within the paranasal sinuses. Normally aerated mas toid air cells and middle ears. IMPRESSION: No acute intracranial hemorrhage or CT evidence for an acute cortical infarction. FOR INTERNAL CODING PURPOSES Critical result: Findings discussed with DENIZ CULP MD on 01/09/2022 at 1:45 PM. RESULT CODE: (C) Electronically signed by: CHRIS ROSE MD (01/09/2022 1:45 PM) [facility]
--- NOTE | 2022-01-09 13:52 | PHYS DOC ---
Past History Past Medical History: Dementia, Diabetes, Fibromyalgia, TIA, Other Additional Past Medical Histor: PARKINSONS Past Surgical History: Cholecystectomy, Hysterectomy, Other Smoking: Greater than 1 pack/day Alcohol Use: None Drug Use: None General Adult EDM: Chief Complaint: ALTERED MENTAL STATUS HPI: HPI: Patient is a 51-year-old female coming from home for altered mental status and left-sided weakness. Patient was found to have fallen in her home. Last seen normal about 1 hour prior to arrival, had told her son that she was not feeling well but had no other complaints. Has been at [facility] when she went to the door from for lunch. 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 Has a history of Parkinson's and diabetes. Patient was brought here by her daughter, patient states she did not recognize her daughter and does not know her name. When asked with the patient last remembers that she said "the boy is going to call the woman to come get me" when daughter was asked about who she was referring to it was her cousin who her mother raises. Daughter endorses that the patient would be readily familiar with the name. Patient is complaining of pain to the top of her head. Per chart review patient has a history of seizures, daughter also states that she has a history of headaches but they are not frequent or severe. Has not had a seizure in about 1.5 years. Daughter states that about 20 years ago she had a similar episode where she was profoundly confused and hospitalized for about a month. Is unsure what the diagnosis was found to be at that time. Review of Systems: Review of Systems: All other systems within normal limits except for as noted in the HPI Current Medications: Current Meds: Current Medications Medications (Trade) Dose Ordered Sig/Rafat Start Time Stop Time Status Last Admin Dose Admin Info (Do NOT chart on this entry -- for MONITORING) 1 each PRN DAILY PRN 01/09/22 13:30 01/11/22 13:29 Iohexol (Omnipaque 350 Mg/ml) 100 ml 1X ONCE 01/09/22 13:30 01/09/22 13:31 DC Allergies: Allergies: Allergies Coded Allergies Type Severity Reaction Last Updated Verified codeine Allergy Intermediate Rash 10/03/20 Yes Physical Exam: PE: Constitutional: Well developed, well nourished, disoriented HENT: Normocephalic, atraumatic, bilateral external ears normal, nose normal. [] Eyes: PERRLA, conjunctiva normal, no discharge. [] Neck: No rigidity, supple, no stridor. [] Cardiovascular: Regular rate and rhythm, brisk cap refill [] Lungs & Thorax: Non labored symmetric respirations, no tachypnea or respiratory distress [] Abdomen: Soft, nondistended. Skin: Warm, dry, no erythema, no rash. [] Back: Unremarkable Extremities: No deformities, no lower extremity edema [] Neurologic: Alert and oriented to first name only, gave her maiden name ( for 10 years, together for 30). Daughters names but thinks that they are about 20 years younger.. Left upper and lower extremity weakness, decreased vegetable vendor strength on left. Decreased sensation in left lower extremity, touch on left upper extremity causes paresthesias. Cranial nerves II-XII intact Psychologic: Affect normal, judgement normal, mood normal. [] Current Patient Data: Vital Signs: Vital Signs Date Time Temp Pulse Resp B/P (MAP) Pulse Ox O2 Delivery O2 Flow Rate FiO2 01/09/22 13:28 97.8 127 18 150/114 (126) 9 Room Air EKG: EKG: Sinus tachycardia, incomplete right bundle, normal axis, normal intervals, no STEMI. [] Radiology/Procedures: Radiology/Procedures: [address] [address] IMAGING REPORT Signed PATIENT: JACKIE CORONEL ACCOUNT: [id number] : 1970 LOCATION: ER AGE: 51 SEX: F EXAM STATUS: REG ER ORD. PHYSICIAN: DENIZ CULP MD REASON: stroke PROCEDURE: PORTABLE CHEST 1V XR CHEST 1V Clinical History: Reason: stroke / Spl. Instructions: / History: Technique: AP view of the chest was obtained at 01/09/2022 2:48 PM. Comparison: September 13, 2020. Findings: The cardiomediastinal silhouette is normal. The pulmonary vasculature is normal. The lungs and pleural margins are clear. Impression: No evidence of an acute cardiopulmonary process. Electronically signed by: Marlene Espinoza III, MD (01/09/2022 3:09 PM) [facility] DICTATED AND SIGNED BY: MARLENE ESPINOZA III, MD DATE: 01/09/22 1508 CC: DENIZ CULP MD; PCP,UNKNOWN ~ [] [address] [address] IMAGING REPORT Signed PATIENT: JACKIE CORONEL ACCOUNT: [id number] : 1970 LOCATION: ER AGE: 51 SEX: F EXAM STATUS: REG ER ORD. PHYSICIAN: DENIZ CULP MD REASON: left weakness-given 100 ml omni 350. creatine ok'd by doc. PROCEDURE: CT ANGIOGRAPHY HEAD AND NECK STUDY: CT angiography of the head and neck INDICATION: Left-sided weakness. Code stroke. COMPARISON: 09/14/2020 TECHNIQUE: Axial CT imaging of the head and neck utilizing angiography protocol and performed after the intravenous administration of 100 cc Omnipaque 350 contrast. Multiplanar reformats and 3D MIP acquisitions were obtained. Encountered areas of stenosis are measured per NASCET criteria. One or more of the following individualized dose reduction techniques were utilized for this examination: 1. Automated exposure control 2. Adjustment of the mA and/or kV according to patient size 3. Use of iterative reconstruction technique. FINDINGS: CTA NECK: Arch/Proximal Great Vessels: No dissection or aneurysm at the aortic arch. Sawnson nt great vessel ostia. No stenosis of either subclavian or common carotid arteries. Retropharyngeal course of the common carotid arteries and proximal ICAs. Carotid Bifurcation/Cervical ICA: No stenosis of the cervical ICAs up to the skull base. Vertebral Arteries: Minimal dominance of the left extracranial vertebral artery. No stenosis or dissection. CTA HEAD: Posterior Circulation: Patent intracranial vertebral arteries. Patent basilar artery. No flow-limiting stenosis or branch vessel occlusion of the adequately evaluated posterior cerebral arteries. Anterior Circulation: Minimal carotid siphon calcific atherosclerosis. The intracranial ICAs are patent. No flow-limiting stenosis or branch vessel occlusion of the middle or anterior cerebral arteries. Veins: Patent dural sinuses. MISCELLANEOUS: Mild degenerative changes of the cervical spine. Incomplete evaluation of the central canal possibly with a component of developmental narrowing. IMPRESSION: CT Angio Neck: 1. No dissection or stenosis of the extracranial carotid or vertebral arteries. CT Angio Head: 1. No flow-limiting stenosis or large vessel occlusion seen throughout the anterior or posterior cerebral circulation. Patent dural sinuses. If there is ongoing concern for a recent ischemic event MRI is recommended. FOR INTERNAL CODING PURPOSES Critical result: Findings discussed with DENIZ CULP MD on 01/09/2022 at 3:10 PM. RESULT CODE: (C) Electronically signed by: CHRIS ROSE MD (01/09/2022 3:13 PM) [facility] DICTATED AND SIGNED BY: CHRIS ROSE MD DATE: 01/09/22 1502 CC: DENIZ CULP MD; PCP,UNKNOWN ~ [address] [address] IMAGING REPORT Signed PATIENT: JACKIE CORONEL ACCOUNT: [id number] : 1970 LOCATION: ER AGE: 51 SEX: F EXAM STATUS: REG ER ORD. PHYSICIAN: DENIZ CULP MD REASON: left weakness PROCEDURE: CT CODE STROKE HEAD WO STUDY: CT head without contrast INDICATION: Code stroke. Left-sided weakness. COMPARISON: 10/03/2020 TECHNIQUE: Axial CT imaging through the head without the use of intravenous contrast. Sagittal and coronal reformats were obtained. One or more of the following individualized dose reduction techniques were utilized for this examination: 1. Automated exposure control 2. Adjustment of the mA and/or kV according to patient size 3. Use of iterative reconstruction technique. FINDINGS: No acute intracranial hemorrhage. Brewer-white matter differentiation is maintained. No mass effect, midline shift or hydrocephalus. Unremarkable scalp, orbits and calvarium. No fluid within the paranasal sinuses. Normally aerated mastoid air cells and middle ears. IMPRESSION: No acute intracranial hemorrhage or CT evidence for an acute cortical infarction. FOR INTERNAL CODING PURPOSES Critical result: Findings discussed with DENIZ CULP MD on 01/09/2022 at 1:45 PM. RESULT CODE: (C) Electronically signed by: CHRIS ROSE MD (01/09/2022 1:45 PM) [facility] DICTATED AND SIGNED BY: CHRIS ROSE MD DATE: 01/09/221341 CC: DENIZ CULP MD; PCP,UNKNOWN ~ Heart Score: C/O Chest Pain: No Risk Factors: Risk Factors: DM, Current or recent (<one month) smoker, HTN, HLP, family history of CAD, obesity. Risk Scores: Score 0 - 3: 2.5% MACE over next 6 weeks - Discharge Home Score 4 - 6: 20.3% MACE over next 6 weeks - Admit for Clinical Observation Score 7 - 10: 72.7% MACE over next 6 weeks - Early Invasive Strategies Course & Med Decision Making: Course & Med Decision Making Pertinent Labs and Imaging studies reviewed. (See chart for details) Discussed case at [address] Wall, he recommends TPA due to focal neurologic findings consisting of left upper and lower extremity weakness, and sensory deficits. Family initially agreeable to TPA after discussing risks and benefits, alteplase ordered at 1510. Patient's daughter is on phone with who decided he does not want her to receive TPA. Discussed imaging findings but patient and family seem to have difficulty comprehending that the symptoms are likely secondary to a stroke. Patient has already been accepted to [facility]. Multiple conversations with family between me and nurse discussing the diagnosis of stroke. While in emergency department patient's mental status improved and she is now alert and oriented to the current time and place. She is able to recognize her daughter. No improvement in lower extremity weakness. Patient insisting that she is wants to go home. Patient's states that if she wants to go home he wants her to go home. Discussed other options such as transfer to or different facility, patient and family adamantly refusing. Discussed with patient that the deficits will lead to long-term disability and potentially get worse. Patient states that she has a walker or a wheelchair at home and will have her and daughter help her. Discussed that that is highly not recommended due to morbidity. Patient still insisting she wants to leave and signed AMA paperwork. Per nurse when she was leaving the facility she needed a lot of assistance to get from the wheelchair to the car. Made a s tatement that part of her decision was that she did not want to 'stay in the hospital over the weekend'. Notified Dr. Flores and Dr. Wall of patient's decision. [] Dragon Disclaimer: Dragon Disclaimer: This electronic medical record was generated, in whole or in part, using a voice recognition dictation system. Departure Departure: Impression: Primary Impression: Transient amnesia Additional Impressions: Left arm weakness Left leg numbness Left leg weakness Disposition: 07 LEFT AGAINST MEDICAL ADVICE Condition: GUARDED Referrals: PCP,UNKNOWN (PCP) DENIZ CULP MD Jan 09, 2022 13:52
[2022-01-09] MEDS ORDERED: ALTEPLASE 2 MG VIAL INT CAT ONE (15:10)
--- NOTE | 2022-01-09 15:11 | RAD ---
XR CHEST 1V Clinical History: Reason: stroke / Spl. Instructions: / History: Technique: AP view of the chest was obtained at 01/09/2022 2:48 PM. Comparison: September 13, 2020. Findings: The cardiomediastinal silhouette is normal. The pulmonary vasculature is normal. The lungs and pleura l margins are clear. Impression: No evidence of an acute cardiopulmonary process. Electronically signed by: Roque Cox III, MD (01/09/2022 3:09 PM) [facility]
--- NOTE | 2022-01-09 15:15 | RAD ---
STUDY: CT angiography of the head and neck INDICATION: Left-sided weakness. Code stroke. COMPARISON: 09/14/2020 TECHNIQUE: Axial CT imaging of the head and neck utilizing angiography protocol and performed after t he intravenous administration of 100 cc Omnipaque 350 contrast. Multiplanar reformats and 3D MIP acqu isitions were obtained. Encountered areas of stenosis are measured per NASCET criteria. One or more of the following individualized dose reduction techniques were utilized for this examinat ion: 1. Automated exposure control 2. Adjustment of the mA and/or kV according to patient size 3. Use of iterative reconstruction technique. FINDINGS: CTA NECK: Arch/Proximal Great Vessels: No dissection or aneurysm at the aortic arch. Patent great vessel ostia. No stenosis of either subclavian or common carotid arteries. Retropharyngeal course of the common ca rotid arteries and proximal ICAs. Carotid Bifurcation/Cervical ICA: No stenosis of the cervical ICAs up to the skull base. Vertebral Arteries: Minimal dominance of the left extracranial vertebral artery. No stenosis or disse ction. CTA HEAD: Posterior Circulation: Patent intracranial vertebral arteries. Patent basilar artery. No flow-limitin g stenosis or branch vessel occlusion of the adequately evaluated posterior cerebral arteries. Anterior Circulation: Minimal carotid siphon calcific atherosclerosis. The intracranial ICAs are atkinson nt. No flow-limiting stenosis or branch vessel occlusion of the middle or anterior cerebral arteries. Veins: Patent dural sinuses. MISCELLANEOUS: Mild degenerative changes of the cervical spine. Incomplete evaluation of the central canal possibly with a component of developmental narrowing. IMPRESSION: CT Angio Neck: 1. No dissection or stenosis of the extracranial carotid or vertebral arteries. CT Angio Head: 1. No flow-limiting stenosis or large vessel occlusion seen throughout the anterior or posterior cere bral circulation. Patent dural sinuses. If there is ongoing concern for a recent ischemic event MRI i s recommended. FOR INTERNAL CODING PURPOSES Critical result: Findings discussed with DENIZ CULP MD on 01/09/2022 at 3:10 PM. RESULT CODE: (C) Electronically signed by: CHRIS ROSE MD (01/09/2022 3:13 PM) [facility]
[2022-01-09 15:25] LABS: BASO # 0.1 x10^3/uL (0.0-0.2); BASO % 1 % (0-3); EOS # 0.3 x10^3/uL (0.0-0.7); EOS % 3 % (0-3); HEMATOCRIT 40.9 % (36.0-47.0); HEMOGLOBIN 13.5 g/dL (12.0-15.5); LYMPH # 2.9 x10^3/uL (1.0-4.8); LYMPH % 29 % (24-48); MEAN CORPUSCULAR HEMOGLOBIN 30 pg (25-35); MEAN CORPUSCULAR HGB CONC 33 g/dL (31-37); MEAN CORPUSCULAR VOLUME 90 fL (79-100); MONO # 0.5 x10^3/uL (0.0-1.1); MONO % 5 % (0-9); NEUT # 6.4 x10^3uL (1.8-7.7); NEUT % 63 % (31-73); PLATELET COUNT 279 x10^3/uL (140-400); RED BLOOD COUNT 4.56 x10^6/uL (3.50-5.40); RED CELL DISTRIBUTION WIDTH 14.7 % (11.5-14.5); WHITE BLOOD COUNT 10.2 x10^3/uL (4.0-11.0)
[2022-01-09 15:36] LABS: CALCIUM 8.9 mg/dL (8.5-10.1); CREATININE 0.7 mg/dL (0.6-1.0); GFR 88.6
[2022-01-09 15:41] LABS: ALBUMIN/GLOBULIN RATIO 0.8 (1.0-1.7); PHOSPHORUS 3.2 mg/dL (2.6-4.7); TOTAL BILIRUBIN 0.3 mg/dL (0.2-1.0); TOTAL PROTEIN 6.8 g/dL (6.4-8.2)
[2022-01-09 15:47] LABS: BACTERIA,URINE 0 /HPF (0-FEW); CLARITY,URINE CLEAR; COLOR,URINE YELLOW; GLUCOSE,URINE NEG (NEG); NITRITE,URINE NEG (NEG); RBC,URINE 0 /HPF (0-2); SQUAMOUS EPITHELIAL CELL,UR OCC /LPF; UROBILINOGEN,URINE 0.2 mg/dL (0.2 mg/dL); WBC,URINE 0 /HPF (0-4)
[2022-01-09 15:49] LABS: BARBITURATES NEG (NEG); BENZODIAZEPINES NEG (NEG); CANNABINOIDS NEG (NEG); COCAINE NEG (NEG); METHADONE POS (NEG); OPIATES NEG (NEG); PHENCYCLIDINE NEG (NEG)
[2022-01-09 15:51] LABS: AMPHETAMINE/METHAMPHETAMINE NEG (NEG)
[2022-01-09] MEDS ORDERED: IV NORMAL SALINE 100ML 100 ML IV ONE (16:00)
[2022-01-09] MEDS ORDERED: ALTEPLASE IV ONE ×2 (16:00)
[2022-01-09 16:04] VITALS: BP 133/94
--- NOTE | 2022-01-09 18:49 | EKG ---
[address] [address] Test Date: 2022-01-09 Test Time: 13:43:54 Pat Name: JACKIE CORONEL Department: Room: Gender: F Audience Coordinator: : 1970 Requested By: DENIZ CULP Order Number: [id number] Reading MD: Khari Nicolas Measurements Intervals [place] Rate: 103 P: 54 SC: 130 QRS: 48 QRSD: 92 T: 55 QT: 344 QTc: 453 Interpretive Statements SINUS TACHYCARDIA INCOMPLETE RIGHT BUNDLE BRANCH BLOCK Electronically Signed On 01-09-2022 21:14:54 CDT by Khari Nicolas
== END 2022-01-09 16:17 | disposition left against medical advice (07) ==
LOC: ER 13:12
DX: G45.4 Transient global amnesia (principal); R53.1 Weakness; R20.0 Anesthesia of skin; F03.90 Unspecified dementia, unspecified severity, without behavioral disturbance, psychotic disturbance, mood disturbance, and anxiety; E11.9 Type 2 diabetes mellitus without complications; M79.7 Fibromyalgia; F17.200 Nicotine dependence, unspecified, uncomplicated; Z86.73 Personal history of transient ischemic attack (TIA), and cerebral infarction without residual deficits; Z88.5 Allergy status to narcotic agent
CPT/HCPCS: 36415; 70450; 70496; 70498; 71045; 80053; 80307; 81001; 82947; 83605; 84100; 84484; 85025; 85610; 85730; 93005; 99285; G0480; Q9967